=== PATIENT | male | born 1965 ===

== ENCOUNTER 2020-07-17 12:49 | Outpatient (REF) | payer BC, SELFPAY | END 2020-07-17 12:50 | disposition home or self-care (01) | LOC: HO.LAB 12:49 | PROVIDERS: Visit Provider Internal Medicine | DX: Z13.89 Encounter for screening for other disorder (principal) ==

== ENCOUNTER 2020-11-22 15:30 | Outpatient (RCR) | payer BC, SELFPAY ==
--- NOTE | 2020-11-22 16:14 | MHC.OT.DC ---
[address] [phone] F: [phone] Occupational Therapy Discharge Note Provider: Ramila Garrido NP. PCP Dr. Best White Diagnosis: Right lateral epicondylitis Date of Surgery: Date of Evaluation: 10/30/20 Date of Discharge: 11/22/20 Treatments to Date: 6 Cancellations to Date: No Shows to Date: Discharge Status: Achieved Goals Improved Function Independent with HEP Discharge Summary: Goals met for pain, strength ,function and self management for right lateral epicondylitis. Ship Purser 100 lb Quick DASH 15 pt, discomfort with lifting > 10 lb without use of a counter force brace Electronically Signed By: Analilia Joy OT CHT CLT Reviewed/agree with student documentation: N/A Therapist: Please Sign and return to therapist, thank you for your referral.
== END 2020-11-22 16:14 | disposition other institution (70) ==
LOC: HO.OT 15:30
PROVIDERS: PCP Internal Medicine; Visit Provider Nurse Practitioner Family
DX: M77.11 Lateral epicondylitis, right elbow (principal)
CPT/HCPCS: 97035; 97110; 97165

== ENCOUNTER 2021-03-06 10:39 | Outpatient (REF) | payer BC, SELFPAY ==
[2021-03-06 11:46] LABS: Hematocrit 38.1 % (42-52); Hemoglobin 12.1 g/dl (14.0-18.0); Mean Corpuscular HGB Conc 31.8 g/dl (31.0-36.0); Mean Corpuscular Hemoglobin 26.7 pg (27.0-33.0); Mean Corpuscular Volume 83.9 fL (80-98); Mean Platelet Volume 11.2 fL (9.4-12.4); Platelet Count 294 X10*3/uL (160-400); Red Blood Count 4.54 X10*6/uL (4.60-5.80); Red Cell Distribution Width 13.9 % (11.0-16.0); White Blood Count 7.8 X10*3/uL (4.8-10.8)
[2021-03-06 12:24] LABS: Alanine Aminotransferase 27 U/L (0-40); Albumin Level 4.3 g/dL (3.5-5.0); Alkaline Phosphatase 73 U/L (39-117); Anion Gap 12 (12-20); Aspartate Amino Transferase 27 U/L (5-37); Bilirubin Direct 0.2 mg/dL (0.0-0.5); Bilirubin Total 0.6 mg/dL (0.0-1.0); Blood Urea Nitrogen 12 mg/dL (9-16); Calcium 8.9 mg/dL (8.4-10.2); Carbon Dioxide 23 mmol/L (22-29); Chloride 110 mmol/L (96-108); Cholesterol 145 mg/dL; Estimated Glomerular Filt Rate > 60; Glucose Random 97 mg/dL (60-115); HDL Cholesterol 24 mg/dL; LDL Cholesterol Calculated 103 mg/dl; Potassium 4.7 mmol/L (3.3-5.1); Sodium 140 mmol/L (135-145); Total Protein 6.8 g/dL (6.5-8.0); Triglycerides 94 mg/dL
[2021-03-06 12:33] LABS: Thyroid Stimulating Hormone 1.25 uIU/mL (0.32-4.0)
== END 2021-03-06 10:40 | disposition home or self-care (01) ==
LOC: HO.LAB 10:39
PROVIDERS: PCP Internal Medicine; Visit Provider Internal Medicine
DX: Z00.01 Encounter for general adult medical examination with abnormal findings (principal); F41.9 Anxiety disorder, unspecified
CPT/HCPCS: 36415; 80048; 80061; 80076; 84443; 85027

== ENCOUNTER 2022-11-29 12:58 | Inpatient (IN) | payer BC, SELFPAY ==
--- NOTE | ~2022-11-29 | US_ITS ---
EXAMINATION: US RETROPERITONEAL LIMITED (RENAL ONLY) CLINICAL INFORMATION: Renal failure. Rule out obstruction.. COMPARISON: None available. TECHNIQUE: Grayscale and color imaging of the kidneys FINDINGS: RIGHT KIDNEY: 10.3 x 5.3 x 6.2 cm (SAG x AP x TRV). The kidney is normal in size, contour, and echogenicity. Renal cortical thickness is normal. No calculi or focal parenchymal lesions. No hydronephrosis. LEFT KIDNEY: 13.7 x 5.5 x 5.4 cm (SAG x AP x TRV). The left kidney is larger than the right. The kidney is normal in contour, and echogenicity. Renal cortical thickness is normal. No calculi or focal parenchymal lesions. No hydronephrosis. US/US renal BI IMPRESSION: No hydronephrosis. The left kidney is larger than the right.
[2022-11-29 13:32] VITALS: BP 141/73; PULSE 87; RESP 16; TEMP 35.9; O2SAT 100; BMI 30.5
--- NOTE | 2022-11-29 13:55 | ECG_ITS ---
Test Reason : CP Blood Pressure : / mmHG Vent. Rate : 081 BPM Atrial Rate : 081 BPM P-R Int : 142 ms QRS Dur : 090 ms QT Int : 372 ms P-R-T Axes : 026 -09 003 degrees QTc Int : 432 ms Normal sinus rhythm cannot exclude old Inferior infarct , age undetermined Abnormal ECG No previous ECGs available Referred By: Jerzy Alonzo Electronically Signed By:MARITZA HOYT
[2022-11-29] MEDS: 0.9 % Sodium Chloride 1,000 ML 999 ML IV (14:20)
[2022-11-29 14:32] LABS: MANUAL DIFF FLAG NO
--- NOTE | 2022-11-29 14:34 | ED_ITS ---
HPI - General Adult General Chief complaint: Weakness Stated complaint: weak Time Seen by Provider: 11/29/22 13:07 Source: patient Mode of arrival: ambulatory Limitations: no limitations History of Present Illness HPI narrative: 57-year-old male presents with generalized weakness. Patient started developing some GI related symptoms approximately 4-5 days ago nausea, no vomiting, diarrhea and some generalized myalgias. Denies any fevers but he did have chills. Patient's symptoms are moderate to severe. There is no clear relieving or exacerbating features. Sen nonbloody stools. Denies lightheadedness, chest pain, palpitations, cough, mucus production. Patient thought he might have the flu. He does have a sick contact in a son who had a respiratory related illness. Related Data Previous Rx's Medication Instructions Recorded clonazepam 0.5 mg tablet 0.25 mg PO BEDTIME PRN anxiety #30 06/09/22 tabs lisinopril 20 1 tab PO DAILY #90 tabs 10/27/22 mg-hydrochlorothiazide 12.5 mg tablet albuterol sulfate 90 mcg/actuation 2 puff PO Q6H #18 ea 11/18/22 aerosol inhaler Allergies Allergy/AdvReac Type Severity Reaction Status Date / Time ibuprofen Allergy Unknown Unknown Verified 11/29/22 13:37 [facility] Past Medical History Medical History Anxiety Essential (primary) hypertension Reactive airway disease Surgical History No pertinent past surgical history Family History Family History Father CVD (cardiovascular disease) Carotid artery disease Mother CVD (cardiovascular disease) Carotid artery disease Brother In good health Son In good health Social History Social History Housing: House Alcohol intake: current Alcohol intake frequency: a few times a month Patient Tobacco Use Status: Former Tobacco user (one year) Quit Date: one year e-Cigarette/Vaping Use: Never Used Second Hand Smoke Exposure: Yes Advance Directives: No Advance Directives Information Provided: No service: No Current occupational status: employed Cognitive needs: No Hearing needs: No Vision needs: Yes (glasses) Physical Exam ED Vital Signs: Vital Signs - 24 hr 05/26/23 13:32 Temperature 96.7 F L Pulse Rate 87 Respiratory Rate 16 Blood Pressure 141/73 H Pulse Oximetry 100 Oxygen Delivery Method Room Air BMI result Body Mass Index 30.5 GEN: Well developed, no acute distress, alert, oriented HEENT: Normocephalic, atraumatic, normal external ears, nose appears normal, no oropharyngeal edema or exudates Eyes: Normal to appearance Neck: Supple, no lymphadenopathy Respiratory: Talks in complete sentences, no respiratory distress, clear to auscultation bilaterally Cardiovascular: Regular rate and rhythm, no murmurs rubs or gallops Abdomen: Soft, nontender, nondistended, no guarding, no rebound Back: No CVA tenderness Extremities: No clubbing cyanosis or edema Neurologic: No focal neurologic deficits, cranial nerves 2-12 intact, strength is 5/5 bilaterally Skin: No rash Course Course Course Narrative: 57-year-old male presents with generalized weakness, chills, nausea, no vomiting, loose stools times several days. Examination is benign pays abdomen is soft, nontender, nondistended. There is no rebound or guarding. There is no CVA tenderness. While patient is here, I will hydrate the patient with intravenous fluids, check laboratory analysis, re-evaluate and appropriate disposition. Reevaluation(s) Reevaluation #1: patient wit significant ANGELY, will admit. No hyperkalemia, Tx for now with IVF and admit Time: 15:18 Medications Administered Discontinued Medications Generic Name Dose Route Start Last Admin Trade Name Freq PRN Reason Stop Dose Admin Sodium Chloride 1,000 mls @ 999 mls/hr 11/29/22 14:00 11/29/22 14:20 Ns IV 11/29/22 15:00 999 mls/hr .Q1H1M [facility] Administration Medical Decision Making Medical Decision Making [facility] Narrative: 57-year-old male presents with generalized weakness, diarrhea at chills. Examination is benign. Differential diagnosis includes COVID, influenza, viral gastroenteritis, IBD, IBS, anemia, electrolyte abnormality. There is no emergent indication for imaging of the abdomen or chest at this time. Will check for anemia, electrolyte abnormality, renal dysfunction, white blood cell count to consider an appropriate disposition. Differential Diagnosis Differential Diagnoses: The differential diagnosis associated with the presentation includes (See above) Admission/Observation Consideration of admission/observation: Escalation of care including admission/observation considered Lab Data MDM Lab Attestation statement: I reviewed the patient's lab results. 11/29/22 14:19 11/29/22 14:19 Labs: Lab Results 11/29/22 11/29/22 11/29/22 Range/Units 14:19 14:19 14:19 WBC 7.2 (4.8-10.8) X10*3/uL RBC 5.21 (4.60-5.80) X10*6/uL Hgb 12.8 L (14.0-18.0) g/dl Hct 38.6 L (42.0-52.0) % MCV 74.1 L (80.0-98.0) fL MCH 24.6 L (27.0-33.0) pg MCHC 33.2 (31.0-36.0) g/dl RDW 14.6 (11.0-16.0) % Plt Count 360 (160-400) X10*3/uL MPV 10.8 (9.4-12.4) fL Immature Gran % (Auto) 0.7 H (0.0-0.4) % Neut % (Auto) 71.4 (45-73) % Lymph % (Auto) 14.7 L (20-40) % [place] % (Auto) 11.1 H (2-11) % Eos % (Auto) 1.8 (0-4) % Baso % (Auto) 0.3 (0-2) % Lymph # (Auto) 1.1 L (1.2-4.9) X10*3/uL [place] # (Auto) 0.8 (0.1-1.2) X10*3/uL Eos # (Auto) 0.1 (0.0-0.4) X10*3/uL Baso # (Auto) 0.0 (0.0-0.2) X10*3/uL Abs Immat Gran (auto) 0.05 H (0.00-0.03) X10*3/uL Absolute Neuts (auto) 5.2 (2.0-8.3) x10*3/uL Absolute Nucleated RBC 0.000 (0.0-0.012) X10*3/uL Nucleated RBC % (auto) 0.0 (0.0-0.2) /100WBC Sodium 134 L (135-145) mmol/L Potassium 3.4 D (3.3-5.1) mmol/L Chloride 103 (96-108) mmol/L Carbon Dioxide 17 L (22-29) mmol/L Anion Gap 17 (12-20) BUN 97 H (9-16) mg/dL Creatinine 4.30 H* (0.5-1.4) mg/dL Estim Creat Clear Calc 19.9 Estimated GFR 14 Random Glucose 96 (60-115) mg/dL Lactic Acid 0.9 (0.5-2.0) mmol/L Calcium 8.5 (8.4-10.2) mg/dL Total Bilirubin 0.5 (0.0-1.0) mg/dL AST 19 (5-37) U/L ALT 22 (0-40) U/L Alkaline Phosphatase 77 (39-117) U/L Total Protein 7.2 (6.5-8.0) g/dL Albumin 4.4 (3.5-5.0) g/dL TSH 0.68 (0.32-4.0) uIU/mL COVID-19 (CHRISTINA) (Negative) COVID-19 Clin Com Influenza Type A (VALDEZ) (Negative) Influenza Type B (VALDEZ) (Negative) Influenza A & B Note 11/29/22 11/29/22 Range/Units 14:23 14:23 WBC (4.8-10.8) X10*3/uL RBC (4.60-5.80) X10*6/uL Hgb (14.0-18.0) g/dl Hct (42.0-52.0) % MCV (80.0-98.0) fL MCH (27.0-33.0) pg MCHC (31.0-36.0) g/dl RDW (11.0-16.0) % Plt Count (160-400) X10*3/uL MPV (9.4-12.4) fL Immature Gran % (Auto) (0.0-0.4) % Neut % (Auto) (45-73) % Lymph % (Auto) (20-40) % [place] % (Auto) (2-11) % Eos % (Auto) (0-4) % Baso % (Auto) (0-2) % Lymph # (Auto) (1.2-4.9) X10*3/uL [place] # (Auto) (0.1-1.2) X10*3/uL Eos # (Auto) (0.0-0.4) X10*3/uL Baso # (Auto) (0.0-0.2) X10*3/uL Abs Immat Gran (auto) (0.00-0.03) X10*3/uL Absolute Neuts (auto) (2.0-8.3) x10*3/uL Absolute Nucleated RBC (0.0-0.012) X10*3/uL Nucleated RBC % (auto) (0.0-0.2) /100WBC Sodium (135-145) mmol/L Potassium (3.3-5.1) mmol/L Chloride (96-108) mmol/L Carbon Dioxide (22-29) mmol/L Anion Gap (12-20) BUN (9-16) mg/dL Creatinine (0.5-1.4) mg/dL Estim Creat Clear Calc Estimated GFR Random Glucose (60-115) mg/dL Lactic Acid (0.5-2.0) mmol/L Calcium (8.4-10.2) mg/dL Total Bilirubin (0.0-1.0) mg/dL AST (5-37) U/L ALT (0-40) U/L Alkaline Phosphatase (39-117) U/L Total Protein (6.5-8.0) g/dL Albumin (3.5-5.0) g/dL TSH (0.32-4.0) uIU/mL COVID-19 (CHRISTINA) Negative (Negative) COVID-19 Clin Com See Note Influenza Type A (VALDEZ) Negative (Negative) Influenza Type B (VALDEZ) Negative (Negative) Influenza A & B Note See Note Independent Interpretation I performed an independent interpretation of an: EKG (Normal sinus rhythm heart rate 81, normal intervals, no acute ST elevations depressions, Q-waves noted in the inferior leads suggestive of an old inferior wall DE) Independent Historian Clinical information obtained from an independent historian. History obtained from or confirmed by: Spouse Prescription Management I considered prescription management with: Pain Medication Chronic Conditions Patient?s care impacted by: Hypertension Discharge Plan Discharge Clinical Impression: Diarrhea, Generalized weakness, ANGELY (acute kidney injury) Patient Disposition: Admitted As Inpatient
[2022-11-29 14:39] LABS: Basophils Percent Auto 0.3 % (0-2); Eosinophils Absolute Auto 0.1 X10*3/uL (0.0-0.4); Eosinophils Percent Auto 1.8 % (0-4); Hematocrit 38.6 % (42.0-52.0); Hemoglobin 12.8 g/dl (14.0-18.0); Imm Gran Abs Auto 0.05 X10*3/uL (0.00-0.03); Imm Gran Pct Auto 0.7 % (0.0-0.4); Lymphocytes Absolute Auto 1.1 X10*3/uL (1.2-4.9); Lymphocytes Percent Auto 14.7 % (20-40); Mean Corpuscular HGB Conc 33.2 g/dl (31.0-36.0); Mean Corpuscular Hemoglobin 24.6 pg (27.0-33.0); Mean Corpuscular Volume 74.1 fL (80.0-98.0); Mean Platelet Volume 10.8 fL (9.4-12.4); Monocytes Absolute Auto 0.8 X10*3/uL (0.1-1.2); Monocytes Percent Auto 11.1 % (2-11); Neutrophils Absolute Auto 5.2 x10*3/uL (2.0-8.3); Neutrophils Percent Auto 71.4 % (45-73); Platelet Count 360 X10*3/uL (160-400); Red Blood Count 5.21 X10*6/uL (4.60-5.80); Red Cell Distribution Width 14.6 % (11.0-16.0); White Blood Count 7.2 X10*3/uL (4.8-10.8)
[2022-11-29 14:48] LABS: Lactic Acid 0.9 mmol/L (0.5-2.0)
[2022-11-29 15:01] LABS: COVID-19 Test Negative (Negative); IDNOW Serial# 08D9AD1C; IDNOW Serial# BCCEAD1C; Influenza A Negative (Negative); Influenza B2 Negative (Negative)
[2022-11-29 15:02] LABS: Alanine Aminotransferase 22 U/L (0-40); Albumin Level 4.4 g/dL (3.5-5.0); Alkaline Phosphatase 77 U/L (39-117); Anion Gap 17 (12-20); Aspartate Amino Transferase 19 U/L (5-37); Bilirubin Total 0.5 mg/dL (0.0-1.0); Blood Urea Nitrogen 97 mg/dL (9-16); Calcium 8.5 mg/dL (8.4-10.2); Carbon Dioxide 17 mmol/L (22-29); Chloride 103 mmol/L (96-108); Creatinine Clr Calc Pharmacy 19.9; Estimated Glomerular Filt Rate 14; Glucose Random 96 mg/dL (60-115); Potassium 3.4 mmol/L (3.3-5.1); Sodium 134 mmol/L (135-145); Total Protein 7.2 g/dL (6.5-8.0)
[2022-11-29 15:13] LABS: TSH reflex Free T4 0.68 uIU/mL (0.32-4.0)
--- NOTE | 2022-11-29 15:54 | PM.IMHP ---
History of Present Illness Date of Service: 11/29/22 Attending physician on admission: [facility] Chief Complaint: weakness, diarrhea this is a 57-year-old male with history of hypertension who presents to the emergency department with generalized weakness and diarrhea. He began having multiple episodes of nonbloody diarrhea on Friday. This was not associated with any abdominal pain, fever, chills. His and son had similar illness prior to the onset of his symptoms. He denies any associated nausea or vomiting. He has had associated generalized weakness and intermittent dizziness. He has had decreased p.o. intake since onset of symptoms. He and his family did eat out at a restaurant on Friday prior to the onset of his symptoms. He denies any recent travel. He takes lisinopril for his hypertension and has been compliant with medications. He was seen in the outpatient clinic and due to generalized weakness he was referred to the emergency department for further evaluation. In the emergency department he was noted to have acute kidney injury with a serum creatinine of 4.30. No imaging was obtained. He received 1 L of normal saline and admission was requested. At this time patient states that he took Imodium and Pepto-Bismol yesterday and has not had any diarrhea since that time. Review of Systems Review of Systems: Yes all other systems are reviewed and are negative Constitutional: Constitutional: Denies chills and Denies fever(s) ENT: Reports dizziness Cardiovascular: Cardiovascular: Denies chest pain and Denies palpitations Gastrointestinal: Gastrointestinal: Denies abdominal pain, Reports diarrhea, Denies nausea and Denies vomiting Neurologic: Reports dizziness Endocrine: Endocrine: Denies palpitations [facility] Medical History Anxiety Essential (primary) hypertension Reactive airway disease Functional capacity: independent ambulation Family History Father CVD (cardiovascular disease) Carotid artery disease Mother CVD (cardiovascular disease) Carotid artery disease Brother In good health Son In good health Surgical History No pertinent past surgical history Social History Housing: House Alcohol intake: current Alcohol intake frequency: a few times a month Patient Tobacco Use Status: Former Tobacco user (one year) Quit Date: one year e-Cigarette/Vaping Use: Never Used Second Hand Smoke Exposure: Yes Advance Directives: No Advance Directives Information Provided: No service: No Current occupational status: employed Cognitive needs: No Hearing needs: No Vision needs: Yes (glasses) Meds Allergies Allergy/AdvReac Type Severity Reaction Status Date / Time ibuprofen Allergy Unknown Unknown Verified 11/29/22 13:37 Active Medications: Current Medications Acetaminophen (Acetaminophen 325 Mg Tablet) 650 mg PO Q6H PRN PRN Reason: Pain, Mild (Pain Scale 1-3) Sodium Chloride (Ns) 1,000 mls @ 100 mls/hr IVCONT .Q10H LAURENT Ondansetron HCl (Ondansetron Hcl 4 Mg/2 Ml Vial) 4 mg IVPUSH Q8H PRN PRN Reason: Nausea and Vomiting Pharmacy Consult (Consult Rx Perform Med Rec) 1 each MISCELLANE ONCE PRN PRN Reason: Consult order Sodium Chloride (0.9 % Sodium Chloride Flush 3 Ml Syringe) 3 ml IVFLUSH QSHIFT LAURENT Physical Exam Vital Signs and Narrative: Vital Signs: Last Vital Signs Temp 96.7 F L 11/29/22 13:32 Pulse 87 11/29/22 13:32 Resp 16 11/29/22 13:32 BP 141/73 H 11/29/22 13:32 Pulse Ox 100 11/29/22 13:32 O2 Del Method Room Air 11/29/22 13:32 BMI result Body Mass Index 30.5 Const: General: cooperative, comfortable, no acute distress, alert and awake Nutritional Appearance: average body habitus Orientation/consciousness: patient oriented x3 Resp: Effort & Inspection: normal respiratory effort, able to speak in complete sentences, no respiratory distress and no use of accessory muscles Cardio: Rate: regular rate Heart sounds: S1 normal heart sound present and S2 normal heart sound present GI: Other: +BS no guarding or rebound Inspection: No distended Palpation (GI): Soft to palpation and nontender Neuro: General: patient oriented x3 and CN's II-XI intact bilaterally Extrem: General: Yes no pedal edema Results Labs 11/29/22 14:19 11/29/22 14:19 Labs: Laboratory Results - last 24 hr 11/29/22 11/29/22 11/29/22 14:19 14:19 14:19 MCV 74.1 L MCH 24.6 L MCHC 33.2 RDW 14.6 Plt Count 360 MPV 10.8 Immature Gran % (Auto) 0.7 H Neut % (Auto) 71.4 Lymph % (Auto) 14.7 L [place] % (Auto) 11.1 H Eos % (Auto) 1.8 Baso % (Auto) 0.3 Lymph # (Auto) 1.1 L [place] # (Auto) 0.8 Eos # (Auto) 0.1 Baso # (Auto) 0.0 Abs Immat Gran (auto) 0.05 H Absolute Neuts (auto) 5.2 Absolute Nucleated RBC 0.000 Nucleated RBC % (auto) 0.0 Anion Gap 17 Estim Creat Clear Calc 19.9 Estimated GFR 14 Random Glucose 96 Lactic Acid 0.9 Calcium 8.5 Total Bilirubin 0.5 AST 19 ALT 22 Alkaline Phosphatase 77 Total Protein 7.2 Albumin 4.4 TSH 0.68 COVID-19 (CHRISTINA) COVID-19 Clin Com Influenza Type A (VALDEZ) Influenza Type B (VALDEZ) Influenza A & B Note 11/29/22 11/29/22 14:23 14:23 MCV MCH MCHC RDW Plt Count MPV Immature Gran % (Auto) Neut % (Auto) Lymph % (Auto) [place] % (Auto) Eos % (Auto) Baso % (Auto) Lymph # (Auto) [place] # (Auto) Eos # (Auto) Baso # (Auto) Abs Immat Gran (auto) Absolute Neuts (auto) Absolute Nucleated RBC Nucleated RBC % (auto) Anion Gap Estim Creat Clear Calc Estimated GFR Random Glucose Lactic Acid Calcium Total Bilirubin AST ALT Alkaline Phosphatase Total Protein Albumin TSH COVID-19 (CHRISTINA) Negative COVID-19 Clin Com See Note Influenza Type A (VALDEZ) Negative Influenza Type B (VALDEZ) Negative Influenza A & B Note See Note Assessment and Plan (1) Diarrhea: Status: Acute (2) ANGELY (acute kidney injury): Status: Acute Plan This is a 57 year old male with history of hypertension who presents to the emergency department with 5 day history of diarrhea and generalized weakness found to have acute kidney injury Acute kidney injury Likely related to intravascular volume depletion secondary to diarrhea and decreased PO intake exacerbated by use of lisinopril Renal US to rule out obstruction although less likely urine studies and UA pending IVF if no improvement in renal function would consider Nephrology evaluation avoid nephrotoxins. Hold lisinopril follow BMP acute metabolic acidosis Secondary to ANGELY Monitor renal function/BMP closely diarrhea Likely result of viral gastroenteritis diarrhea seems to have resolved at this time. Will order GI panel in the event that patient has recurrent diarrhea HTN hold lisinopril for ANGELY Follow blood pressure closely chronic normocytic anemia H/H at baseline - above transfusion threshold dvt ppx - mechanical devices, early ambulation attending - dr. albert given acute kidney injury patient will likely require 2 midnight stay in the hospital for IV fluids and close monitoring of renal function Time Spent With Patient Time: Total time managing care of this patient today ____ minutes. Quality Stroke Does the patient have a stroke diagnosis?: No VTE Prior VTE?: No VTE Risk Level:: Medical - moderate - high VTE Device Contraindication: N/A - Device Ordered VTE Drug Contraindication: Treatment Not Indicated
--- NOTE | 2022-11-29 16:00 | PC.NURSE ---
Patient here for evaluation of generalized weakness and diarrhea all weak. IV obtained and patient was given IVF per MAR. Patient is alert and oriented, able to ambulate without issue. Patient ambulated to bathroom independently accompanied by . No issue noted with gait.
--- NOTE | 2022-11-29 16:52 | PHA.MEDREC ---
Pharmacy Consult ? Medication Reconciliation Pharmacy has completed the medication reconciliation. Pt knew meds. Compiled med rec from pt conversation.
[2022-11-29] MEDS: 0.9 % Sodium Chloride 1,000 ML 100 ML IVCONT (17:06)
[2022-11-29 19:02] LABS: Appearance Urine Cloudy; Color Urine Yellow; Glucose Urine UA Negative (Negative); Leukocyte Esterase Urine Negative (Negative); Nitrite Urine Negative (Negative); PH 5.5 (5.0-9.0); UMIC TRIGGER UACC YES; Urine Blood Negative (Negative); Urine Ketones Negative (Negative); Urine Protein 30 (1+) mg/dL (Neg-Trace)
[2022-11-29 19:04] VITALS: BP 133/78; PULSE 72; RESP 18; TEMP 36.6; O2SAT 100
[2022-11-29 19:07] LABS: Bacteria Urine None Seen (None Seen); RBC Urine 0-2 /HPF (0-2); Squamous Epithelial Cell Urine 0-2 /HPF (0-2); WBC Urine 0-5 /HPF (0-5)
[2022-11-29 19:33] VITALS: BMI 29.2
[2022-11-29 19:44] VITALS: BP 134/77; PULSE 100; RESP 18; TEMP 36.6; O2SAT 99
[2022-11-29 20:36] LABS: Creatinine Urine 77.69 mg/dL
[2022-11-30] MEDS: Acetaminophen 325 MG TABLET 650 MG PO (01:30)
[2022-11-30 03:27] VITALS: BP 132/77; PULSE 80; RESP 18; TEMP 36.5; O2SAT 99
[2022-11-30] MEDS: 0.9 % Sodium Chloride 1,000 ML 100 ML IVCONT (03:59)
[2022-11-30 06:44] LABS: Anion Gap 14 (12-20); Blood Urea Nitrogen 72 mg/dL (9-16); Carbon Dioxide 17 mmol/L (22-29); Chloride 111 mmol/L (96-108); Creatinine Clr Calc Pharmacy 42.8; Estimated Glomerular Filt Rate 36; Glucose Random 139 mg/dL (60-115); Potassium 3.6 mmol/L (3.3-5.1); Sodium 138 mmol/L (135-145)
--- NOTE | 2022-11-30 07:47 | PM.DS ---
DS: Providers Provider Date of Service: 11/30/22 Date of admission: 11/29/22 15:43 Primary care physician: Best White MD DS: Diagnosis Discharge Diagnosis (1) Diarrhea: Status: Acute (2) ANGELY (acute kidney injury): Status: Acute DS: Summary Hospital Course Hospital Course: HP as per admitting provider this is a 57-year-old male with history of hypertension who presents to the emergency department with generalized weakness and diarrhea. ? He began having multiple episodes of nonbloody diarrhea on Friday.? This was not associated with any abdominal pain, fever, chills.? His and son had similar illness prior to the onset of his symptoms.? He denies any associated nausea or vomiting. He has had associated generalized weakness and intermittent dizziness.? He has had decreased p.o. intake since onset of symptoms. He and his family did eat out at a restaurant on Friday prior to the onset of his symptoms. He denies any recent travel.? He takes lisinopril for his hypertension and has been compliant with medications.? He was seen in the outpatient clinic and due to generalized weakness he was referred to the emergency department for further evaluation.? In the emergency department he was noted to have acute kidney injury with a serum creatinine of 4.30.? No imaging was obtained.? He received 1 L of normal saline and admission was requested.? At this time patient states that he took Imodium and Pepto-Bismol yesterday and has not had any diarrhea since that time . Acute kidney injury related to intravascular volume depletion secondary to diarrhea and decreased PO intake exacerbated by use of lisinopril Renal US neg for obstruction urine studies negative resolved IVF check BMP friday and resume lisinopril acute metabolic acidosis. Resolved Secondary to ANGELY diarrhea. resolved Likely result of viral gastroenteritis HTN hold lisinopril for ANGELY until Friday chronic normocytic anemia H/H at baseline - above transfusion threshold Time Spent with Patient Time attestation: Total time managing care of this patient today ____ minutes. Discharge coordination time: Greater than 30 minutes Quality: Safe Use of Opioids Does Pt have an Active Cancer Diagnosis on the Problem List?: No Quality: Stroke Does the patient have a stroke diagnosis?: No Physical Exam Vital Signs: Vital Signs: Last Vital Signs Temp 97.7 F 11/30/22 03:27 Pulse 80 11/30/22 03:27 Resp 18 11/30/22 03:27 BP 132/77 11/30/22 03:27 Pulse Ox 99 11/30/22 03:27 O2 Del Method Room Air 11/30/22 03:27 BMI result Body Mass Index 29.2 Appearing in no acute distress head is normocephalic atraumatic eyes pupils are PERRLA sclera is anicteric mouth throat mucous membranes are intact and moist neck is supple no lymphadenopathy, no JVD noted lung sounds are clear to auscultation heart regular rate rhythm, clear S1, S2 positive bowel sounds, abdomen is soft, nontender neuro patient is alert x3, no focal deficits DS: Data Data Completed and Pending Labs on day of discharge: Laboratory Results - last 24 hr 11/29/22 11/29/22 11/29/22 14:19 14:19 14:19 WBC 7.2 RBC 5.21 Hgb 12.8 L Hct 38.6 L MCV 74.1 L MCH 24.6 L MCHC 33.2 RDW 14.6 Plt Count 360 MPV 10.8 Immature Gran % (Auto) 0.7 H Neut % (Auto) 71.4 Lymph % (Auto) 14.7 L Payne % (Auto) 11.1 H Eos % (Auto) 1.8 Baso % (Auto) 0.3 Lymph # (Auto) 1.1 L Payne # (Auto) 0.8 Eos # (Auto) 0.1 Baso # (Auto) 0.0 Abs Immat Gran (auto) 0.05 H Absolute Neuts (auto) 5.2 Absolute Nucleated RBC 0.000 Nucleated RBC % (auto) 0.0 Sodium 134 L Potassium 3.4 D Chloride 103 Carbon Dioxide 17 L Anion Gap 17 BUN 97 H Creatinine 4.30 H* Estim Creat Clear Calc 19.9 Estimated GFR 14 Random Glucose 96 Lactic Acid 0.9 Calcium 8.5 Total Bilirubin 0.5 AST 19 ALT 22 Alkaline Phosphatase 77 Total Protein 7.2 Albumin 4.4 TSH 0.68 Urine Color Urine Appearance Urine pH Ur Specific [place] Urine Protein Urine Glucose (UA) Urine Ketones Urine Blood Urine Nitrite Ur Leukocyte Esterase Urine RBC Urine WBC Ur Squamous Epith Cells Urine Bacteria Hyaline Casts Ur Random Sodium Urine Creatinine COVID-19 (CHRISTINA) COVID-19 Clin Com Influenza Type A (VALDEZ) Influenza Type B (VALDEZ) Influenza A & B Note 11/29/22 11/29/22 11/29/22 14:23 14:23 18:55 WBC RBC Hgb Hct MCV MCH MCHC RDW Plt Count MPV Immature Gran % (Auto) Neut % (Auto) Lymph % (Auto) Payne % (Auto) Eos % (Auto) Baso % (Auto) Lymph # (Auto) Payne # (Auto) Eos # (Auto) Baso # (Auto) Abs Immat Gran (auto) Absolute Neuts (auto) Absolute Nucleated RBC Nucleated RBC % (auto) Sodium Potassium Chloride Carbon Dioxide Anion Gap BUN Creatinine Estim Creat Clear Calc Estimated GFR Random Glucose Lactic Acid Calcium Total Bilirubin AST ALT Alkaline Phosphatase Total Protein Albumin TSH Urine Color Yellow Urine Appearance Cloudy Urine pH 5.5 Ur Specific [place] 1.010 Urine Protein 30 (1+) H Urine Glucose (UA) Negative Urine Ketones Negative Urine Blood Negative Urine Nitrite Negative Ur Leukocyte Esterase Negative Urine RBC 0-2 Urine WBC 0-5 Ur Squamous Epith Cells 0-2 Urine Bacteria None Seen Hyaline Casts 3-5 Ur Random Sodium Urine Creatinine COVID-19 (CHRISTINA) Negative COVID-19 Clin Com See Note Influenza Type A (VALDEZ) Negative Influenza Type B (VALDEZ) Negative Influenza A & B Note See Note 11/29/22 11/29/22 11/30/22 20:09 20:09 05:25 WBC RBC Hgb Hct MCV MCH MCHC RDW Plt Count MPV Immature Gran % (Auto) Neut % (Auto) Lymph % (Auto) Payne % (Auto) Eos % (Auto) Baso % (Auto) Lymph # (Auto) Payne # (Auto) Eos # (Auto) Baso # (Auto) Abs Immat Gran (auto) Absolute Neuts (auto) Absolute Nucleated RBC Nucleated RBC % (auto) Sodium 138 Potassium 3.6 Chloride 111 H Carbon Dioxide 17 L Anion Gap 14 BUN 72 H Creatinine 1.96 H Estim Creat Clear Calc 42.8 Estimated GFR 36 Random Glucose 139 H Lactic Acid Calcium 8.0 L Total Bilirubin AST ALT Alkaline Phosphatase Total Protein Albumin TSH Urine Color Urine Appearance Urine pH Ur Specific [place] Urine Protein Urine Glucose (UA) Urine Ketones Urine Blood Urine Nitrite Ur Leukocyte Esterase Urine RBC Urine WBC Ur Squamous Epith Cells Urine Bacteria Hyaline Casts Ur Random Sodium 32.0 Urine Creatinine 77.69 COVID-19 (CHRISTINA) COVID-19 Clin Com Influenza Type A (VALDEZ) Influenza Type B (VALDEZ) Influenza A & B Note Discharge Plan Discharge Anticipated Discharge Date/Time: 11/30/22 07:46 Patient Disposition: Home, Self-Care Discharge Diagnosis: ANGELY Diarrhea Gastroenteritis Referrals: Best White MD [Primary Care Provider] - 1 Week Discharge Medications: Continued albuterol sulfate 90 mcg/actuation HFA aerosol inhaler 2 puff PO Q6H Qty: 18 1RF clonazepam 0.5 mg tablet 0.25 mg PO BEDTIME PRN (Reason: anxiety) Qty: 30 0RF Rx Instructions: administer 30 minutes before bedtime Held lisinopril-hydrochlorothiazide 20-12.5 mg tablet 1 tab PO BEDTIME Hold Instructions: Resume on 12/02/22. Discharge Orders: Discharge Order (Routine); Ordered 11/30/22 Ordered By: Dominique Urias Diet: Advance to usual diet Activity on Discharge: As tolerated Stand Alone Forms: Patient Portal Discharge page Other Ambulatory Orders: Basic Metabolic Panel (Routine) Timeframe: 20221202 Facility: [facility] - Location: Laboratory Ordered By: Dominique Urias Care Plan Goals: Complete resolution of symptoms Health Concerns: ANGELY Diarrhea Gastroenteritis Plan of Treatment: Check BMP on Friday then resume lisinopril Follow up with PCP at scheduled appointment Assessment: See discharge summary
--- NOTE | 2022-11-30 08:04 | MHC.CM.PN ---
PT WILL DC HOME TODAY WITH NO SERVICES
== END 2022-11-30 10:08 | disposition home or self-care (01) | DRG 249 ==
LOC: HO.ED 15:17 → HO.EDOVER 15:54 → HO.S3 17:26
PROVIDERS: Admitting Provider Physician Assistant Medical; Emergency Provider Emergency Medicine; PCP Internal Medicine; Visit Provider Nurse Practitioner Acute Care
DX: A08.4 Viral intestinal infection, unspecified (principal); N17.9 Acute kidney failure, unspecified; E87.21 Acute metabolic acidosis; F41.9 Anxiety disorder, unspecified; I10 Essential (primary) hypertension; D64.9 Anemia, unspecified; Z20.822 Contact with and (suspected) exposure to COVID-19; Z87.891 Personal history of nicotine dependence; Z88.6 Allergy status to analgesic agent; Z79.899 Other long term (current) drug therapy
CPT/HCPCS: 36415; 76775; 80048; 80053; 81001; 81003; 83605; 84300; 84443; 85025; 87502; 87635; 93005; 99285

== ENCOUNTER 2022-11-29 14:00 | Outpatient (REF) | payer BC, SELFPAY ==
[2022-11-29 14:47] LABS: Influenza A PCR NEGATIVE (Negative); Influenza B PCR NEGATIVE (Negative); Resp Syncy Virus RNA Qual PCR NEGATIVE (Negative); SARS COV2 PCR INHOUSE NEGATIVE (Negative)
== END 2022-11-29 14:01 | disposition home or self-care (01) ==
LOC: HO.LNP 14:00
PROVIDERS: Visit Provider Nurse Practitioner Family
DX: Z20.822 Contact with and (suspected) exposure to COVID-19 (principal); R09.89 Other specified symptoms and signs involving the circulatory and respiratory systems
CPT/HCPCS: 0241U

== ENCOUNTER 2022-12-03 15:16 | Outpatient (REF) | payer BC, SELFPAY ==
[2022-12-03 16:29] LABS: Anion Gap 11 (12-20); Blood Urea Nitrogen 19 mg/dL (9-16); Calcium 8.6 mg/dL (8.4-10.2); Carbon Dioxide 22 mmol/L (22-29); Chloride 108 mmol/L (96-108); Estimated Glomerular Filt Rate > 60; Glucose Random 104 mg/dL (60-115); Potassium 4.7 mmol/L (3.3-5.1); Sodium 136 mmol/L (135-145)
== END 2022-12-03 15:17 | disposition home or self-care (01) ==
LOC: HO.LAB 15:16
PROVIDERS: PCP Internal Medicine; Visit Provider Nurse Practitioner Acute Care
DX: N17.9 Acute kidney failure, unspecified (principal)
CPT/HCPCS: 36415; 80048

== ENCOUNTER 2022-12-09 09:28 | Outpatient (REF) | payer BC, SELFPAY ==
[2022-12-09 10:04] LABS: Hematocrit 33.8 % (42.0-52.0); Hemoglobin 10.6 g/dl (14.0-18.0); Mean Corpuscular HGB Conc 31.4 g/dl (31.0-36.0); Mean Corpuscular Hemoglobin 25.4 pg (27.0-33.0); Mean Corpuscular Volume 81.1 fL (80.0-98.0); Mean Platelet Volume 10.1 fL (9.4-12.4); Platelet Count 377 X10*3/uL (160-400); Red Blood Count 4.17 X10*6/uL (4.60-5.80); Red Cell Distribution Width 15.9 % (11.0-16.0); White Blood Count 11.9 X10*3/uL (4.8-10.8)
[2022-12-09 10:49] LABS: Alanine Aminotransferase 27 U/L (0-40); Albumin Level 3.9 g/dL (3.5-5.0); Alkaline Phosphatase 82 U/L (39-117); Anion Gap 11 (12-20); Aspartate Amino Transferase 22 U/L (5-37); Bilirubin Direct 0.1 mg/dL (0.0-0.5); Bilirubin Total 0.5 mg/dL (0.0-1.0); Blood Urea Nitrogen 17 mg/dL (9-16); Calcium 8.9 mg/dL (8.4-10.2); Carbon Dioxide 20 mmol/L (22-29); Chloride 113 mmol/L (96-108); Cholesterol 125 mg/dL; Estimated Glomerular Filt Rate > 60; Glucose Random 98 mg/dL (60-115); HDL Cholesterol 22 mg/dL; LDL Cholesterol Calculated 83 mg/dl; Potassium 4.7 mmol/L (3.3-5.1); Sodium 139 mmol/L (135-145); Total Protein 6.1 g/dL (6.5-8.0); Triglycerides 103 mg/dL
[2022-12-09 11:06] LABS: Thyroid Stimulating Hormone 1.85 uIU/mL (0.32-4.0)
== END 2022-12-09 09:29 | disposition home or self-care (01) ==
LOC: HO.LAB 09:28
PROVIDERS: PCP Internal Medicine; Visit Provider Internal Medicine
DX: I10 Essential (primary) hypertension (principal)
CPT/HCPCS: 36415; 80048; 80061; 80076; 84443; 85027

== ENCOUNTER 2022-12-10 16:33 | Outpatient (REF) | payer BC, SELFPAY ==
[2022-12-10 17:09] LABS: Hematocrit 34.9 % (42.0-52.0); Hemoglobin 10.7 g/dl (14.0-18.0); Mean Corpuscular HGB Conc 30.7 g/dl (31.0-36.0); Mean Corpuscular Hemoglobin 24.9 pg (27.0-33.0); Mean Corpuscular Volume 81.2 fL (80.0-98.0); Mean Platelet Volume 10.2 fL (9.4-12.4); Platelet Count 401 X10*3/uL (160-400); White Blood Count 9.4 X10*3/uL (4.8-10.8)
[2022-12-10 17:44] LABS: Iron 27 mcg/dL (45-160); Lipase 64 U/L (8-78); Percent Iron Saturation 8 % (15-50); Total Iron Binding Capacity 357 mcg/dL (228-428); Unsaturated Iron Binding 330 ug/dL
[2022-12-10 17:56] LABS: Erythrocyte Sedimentation Rate 14 MM/HR (0-15)
== END 2022-12-10 16:34 | disposition home or self-care (01) ==
LOC: HO.LAB 16:33
PROVIDERS: PCP Physician Assistant; Visit Provider Physician Assistant
DX: K52.9 Noninfective gastroenteritis and colitis, unspecified (principal); D50.9 Iron deficiency anemia, unspecified
CPT/HCPCS: 36415; 83540; 83690; 85027; 85652

== ENCOUNTER 2022-12-21 11:10 | Outpatient (REF) | payer BC, SELFPAY ==
[2022-12-21 12:32] LABS: Leukocytes Stool Qualitative MANY: >10/OIF (NEGATIVE)
[2022-12-21 12:39] LABS: CDiff Gene PCR NEGATIVE (Negative)
[2022-12-28 21:59] LABS: Calprotectin, Fecal 1330 mcg/g
== END 2022-12-21 11:11 | disposition home or self-care (01) ==
LOC: HO.LNP 11:10
PROVIDERS: Visit Provider Physician Assistant
DX: K52.9 Noninfective gastroenteritis and colitis, unspecified (principal)
CPT/HCPCS: 83993; 87493; 89055

== ENCOUNTER 2023-04-15 15:43 | Outpatient (AMB) | payer BC, SELFPAY ==
[2023-04-15 15:55] VITALS: BP 140/90; PULSE 82; RESP 17; O2SAT 98; BMI 28.5
--- NOTE | 2023-04-15 15:55 | MHC.PC.OV ---
Vital Signs 04/15/23 15:55 Height 5 ft 6 in Weight 176 lb 6 oz BMI 28.5 BP 140/90 H Blood Pressure Location Lt brachial Position Sitting Respiration 17 Pulse 82 Pulse Source Pulse Oximeter Pulse Oximetry (%) 98 Oxygen Delivery Method Room Air Intake Visit Reasons: 4W follow up, rescheduled from 02/26 Whipped Topping Finisher Required: No Accompanied by: Self / Same As Patient Allergies ibuprofen Allergy (Unknown, Verified 04/15/23 15:58) Unknown Medication List - Last Reconciled 04/15/23 by Dereje Chen PA-C albuterol sulfate 90 mcg/actuation 2 puffs PO Q6H clonazepam 0.25 mg (1/2 x 0.5 mg) PO BEDTIME PRN ferrous sulfate 325 mg PO BID 30 days lisinopril-hydrochlorothiazide 20-12.5 mg 1 tab PO BEDTIME Tobacco use date assessed: 12/10/22 HPI 4W follow up, rescheduled from 02/26 HPI Details Patient is a 57-year-old male here today for a follow-up visit. Patient has a past medical history significant for hypertension and anxiety. At last visit discussed his viral gastroenteritis that resulted in ANGELY. His blood pressure medication was held due to his ANGELY. He since recovered and restarted his blood pressure medication. Unfortunately 4 days ago has noted some lower back pain to which he had taken Advil and the started to have mid upper abdominal pain and bouts of diarrhea which he is concerned about. He has stopped using his blood pressure medication and fear of being dehydrated. He otherwise denies any blood or dark tarry stools. He is somewhat concerned about peptic ulcer disease. Of note blood pressure elevated today in office. 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 Of no patient labs in December of 2022 did show anemia and stool study showing evidence of inflammation. Laboratory Tests 11/29/22 11/29/22 11/30/22 14:19 14:19 05:25 WBC RBC Hgb 12.8 L Creatinine 4.30 H* 1.96 H Iron Stool Calprotectin 12/03/22 12/09/22 12/09/22 15:28 08:35 08:35 WBC 11.9 H RBC Hgb Creatinine 0.80 0.83 Iron Stool Calprotectin 12/09/22 12/09/22 12/10/22 08:35 08:35 16:44 WBC 9.4 RBC 4.17 L 4.30 L Hgb 10.6 L 10.7 L Creatinine Iron Stool Calprotectin 12/10/22 12/21/22 16:44 08:15 WBC RBC Hgb Creatinine Iron 27 L Stool Calprotectin 1330 H [facility] Medical History Anxiety Essential (primary) hypertension Reactive airway disease Surgical History No pertinent past surgical history Family History Father CVD (cardiovascular disease) Carotid artery disease Mother CVD (cardiovascular disease) Carotid artery disease Brother In good health Son In good health Social History Household Members: Spouse Household Members Other:: 2 Housing: House Do you presently have visiting nurse or other home services: No Alcohol intake: never Patient Tobacco Use Status: Former Tobacco user Quit Date: 2021 Tobacco use type: Cigarette Years Smoked: year ago e-Cigarette/Vaping Use: Never Used Second Hand Smoke Exposure: No service: No Current occupational status: employed Cognitive needs: No Hearing needs: No Vision needs: Yes (glasses) Questionnaire Thrive Questionnaire Date Thrive assessed: 12/10/22 CLARICE-7 AMB Questionnaire CLARICE-7 Date CLARICE - 7 assessed: 12/10/22 Source: Developed by Drs. Baltazar Suarez, Gi Huston, Russell Damico and colleagues, with an educational alex from [employer]. Review of Systems Const Denies headache(s) Eyes Denies loss of vision ENT Denies vertigo, Denies dizziness, Denies headache(s) and Denies sore throat Card Denies chest pain, Denies leg edema and Denies lightheadedness Resp Denies cough, Denies hemoptysis and Denies wheezing GI Denies abdominal pain, Denies melena, Reports bloating, Reports change in bowel habits, Denies constipation, Reports diarrhea, Reports nausea and Denies vomiting Denies dysuria, Denies urinary frequency and Denies urinary urgency Musc Denies arthralgias, Denies joint swelling, Denies numbness and Denies tingling Neuro Denies Abnormal speech present, Denies behavioral changes, Denies vertigo, Denies dizziness, Denies headache(s), Denies loss of vision, Denies memory loss, Denies numbness and Denies tingling Psych Denies anxiety, Denies behavioral changes, Denies depression, Denies memory loss and Denies panic attacks Randy/Lymph Denies easy bleeding and Denies easy bruising Aller/Immun Denies wheezing Physical exam (Primary Care) Vital Signs: Last Vital Signs Pulse 82 04/15/23 15:55 Resp 17 04/15/23 15:55 BP 140/90 H 04/15/23 15:55 Pulse Ox 98 04/15/23 15:55 Oxygen Delivery Method Room Air 04/15/23 15:55 BMI result Body Mass Index 28.5 Tobacco/Smoking Status: Tobacco use Status Tobacco use date assessed 12/10/22 04/15/23 15:58 Patient Tobacco Use Status Former Tobacco user 04/15/23 15:58 Tobacco use type Cigarette 04/15/23 15:58 e-Cigarette/Vaping Use Never Used 04/15/23 15:58 Thrive Assessment: Date of Thrive Assessment Date Thrive assessed 12/10/22 04/15/23 15:58 Const General: healthy appearing, no acute distress, alert and awake Nutritional Appearance: well nourished Orientation/consciousness: oriented to person, oriented to place and oriented to time HENMT Ears: TM's normal bilaterally General nose exam: Normal nasal mucous membranes and turbinates present Eyes Conjunctivae: conjunctivae normal Sclerae: sclerae normal Pupils: Equal, round and reactive pupils present Neck Neck: Yes no lymphadenopathy and Yes no JVD Thyroid: Thyroid normal Carotids: no bruits Resp Effort & Inspection: normal respiratory effort and not tachypneic Auscultation: no crackles, no rales, no rhonchi and no wheezes Cardio Rate: regular rate Rhythm: regular rhythm Heart sounds: no murmurs and normal S1 and S2 GI Palpation (GI): Soft to palpation, nontender, no hepatomegaly and no splenomegaly Auscultation: normal bowel sounds Skin General skin exam: no rashes or lesions noted and dry skin Neuro General: oriented to person, oriented to place and oriented to time Cranial nerves: Yes Equal, round and reactive pupils present Speech: No Abnormal speech present Gait exam (Neuro): Normal gait present Motor exam (neuro): no tremor noted Extrem Right upper extremity: full ROM Left upper extremity: full ROM Right lower extremity: full ROM; no edema Left lower extremity: full ROM; no edema Psych Mental Status: mental status grossly normal Speech and movement: Normal speech and movement present Affect: normal affect Attitude: cooperative Thought process: Normal thought process present Assessment and Plan Assessment & Plan (1) GERD (gastroesophageal reflux disease): Code(s): K21.9 - Gastro-esophageal reflux disease without esophagitis Qualifiers: Esophagitis presence: without esophagitis Qualified Code(s): K21.9 - Gastro-esophageal reflux disease without esophagitis Plan: Patient's signs symptoms of epigastric pain after taking Advil is concerning for peptic ulcer disease. 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 Advised to stay away from NSAIDs . Due to the acuity of patient's symptoms will send for nonfasting labs including stool study for H pylori. Otherwise will start PPI therapy for presumed diagnosis of gastritis. (2) Essential (primary) hypertension: Code(s): I10 - Essential (primary) hypertension Plan: At this time patient is holding his lisinopril hydrochlorothiazide as he has been having bouts of diarrhea lately and fears he will become dehydrated. Blood pressure slightly elevated today in office and advised to restart blood pressure medication when diarrhea has resolved. Goal blood pressures to be below 140/90 (3) Chronic diarrhea: Code(s): K52.9 - Noninfective gastroenteritis and colitis, unspecified Plan: Patient does report again having recent bout diarrhea with acute onset. He does have an elevated stool calprotectin which makes diagnosis inflammatory process more likely. He will follow-up with Gastroenterology for colonoscopy. Orders: Orders H pylori Ag Stool 04/15/23 K21.9 - Gastro-esophageal reflux disease without esophagitis Complete Blood Count no Diff 04/15/23 K21.9 - Gastro-esophageal reflux disease without esophagitis Lipase 04/15/23 K21.9 - Gastro-esophageal reflux disease without esophagitis Comprehensive Met. Panel 04/15/23 K21.9 - Gastro-esophageal reflux disease without esophagitis Medications: New lisinopril-hydrochlorothiazide 20-12.5 mg 1 tab PO DAILY 90 tabs 1RF 90 days I10 - Essential (primary) hypertension omeprazole 20 mg PO DAILY 15 days 15 caps 0RF K21.9 - Gastro-esophageal reflux disease without esophagitis Refilled albuterol sulfate 90 mcg/actuation 2 puffs PO Q6H 18 ea 1RF clonazepam administer 30 minutes before bedtime 0.25 mg (1/2 x 0.5 mg) PO BEDTIME PRN 30 tabs 0RF anxiety Coding Level of Care Code Est Pt Level 4 (75793) Diagnoses Gastroesophageal reflux disease without esophagitis K21.9 Esophagitis presence: without esophagitis Essential (primary) hypertension I10 Chronic diarrhea K52.9
== END 2023-04-15 16:26 | disposition home or self-care (01) ==
PROVIDERS: PCP Physician Assistant; Visit Provider Physician Assistant
DX: K21.9 Gastro-esophageal reflux disease without esophagitis (principal); I10 Essential (primary) hypertension; K52.9 Noninfective gastroenteritis and colitis, unspecified
CPT/HCPCS: 99214

== ENCOUNTER 2023-04-15 16:34 | Outpatient (REF) | payer BC, SELFPAY ==
[2023-04-15 17:53] LABS: Alanine Aminotransferase 19 U/L (0-40); Alkaline Phosphatase 75 U/L (39-117); Anion Gap 12 (12-20); Aspartate Amino Transferase 20 U/L (5-37); Bilirubin Total 0.3 mg/dL (0.0-1.0); Blood Urea Nitrogen 13 mg/dL (9-16); Carbon Dioxide 20 mmol/L (22-29); Chloride 111 mmol/L (96-108); Estimated Glomerular Filt Rate > 60; Glucose Random 91 mg/dL (60-115); Lipase 24 U/L (8-78); Potassium 3.8 mmol/L (3.3-5.1); Sodium 139 mmol/L (135-145); Total Protein 6.4 g/dL (6.5-8.0)
== END 2023-04-15 16:35 | disposition home or self-care (01) ==
LOC: HO.LAB 16:34
PROVIDERS: PCP Physician Assistant; Visit Provider Physician Assistant
DX: K21.9 Gastro-esophageal reflux disease without esophagitis (principal)
CPT/HCPCS: 36415; 80053; 83690; 85027

== ENCOUNTER 2023-04-18 11:45 | Outpatient (REF) | payer BC, SELFPAY | END 2023-04-18 11:46 | disposition home or self-care (01) | LOC: HO.LNP 11:45 | PROVIDERS: Visit Provider Physician Assistant | DX: K21.9 Gastro-esophageal reflux disease without esophagitis (principal) | CPT/HCPCS: 87338 ==

== ENCOUNTER 2023-06-10 09:49 | Outpatient (AMB) | payer BC, SELFPAY ==
[2023-06-10 10:49] VITALS: BP 172/96; PULSE 86; TEMP 36.7; O2SAT 97; BMI 29.0
--- NOTE | 2023-06-10 10:49 | AM.OFFWIN_ITS ---
Intake Vital Signs 06/10/23 10:49 Height 5 ft 6 in Weight 81.647 kg BMI 29.0 BP 172/96 H Blood Pressure Location Rt brachial Position Sitting Pulse 86 Pulse Source Pulse Oximeter Temp 98.0 F Temp Source Temporal Artery Scan Pulse Oximetry (%) 97 Oxygen Delivery Method Room Air Intake Visit Reasons: EP, cough, sinus congestion ([phone]) Intake Note: pt is here for c.o cough, sinus congestion Patient Tobacco Use Status: Former Tobacco user Quit Date: 2021 Allergies ibuprofen Allergy (Unknown, Verified 06/10/23 10:49) Unknown Do you need a note to return to daycare/school/sports/work: Yes HPI HPI Comments History of Present Illness Details 1118 57-year-old male history of anxiety, hyp ertension, ANGELY, chronic diarrhea, presenting to the clinic for sick visit complaining of productive cough, congestion, fatigue, malaise, sinus pressure going on for the past 5-6 days worsening. Not improving. No sick contacts. Denies fevers, chills, chest pain, shortness of breath, nausea, vomiting, abdominal pain, vision changes, dizziness and weakness. Physical examination pressure to face with forward bending and discomfort with palpation of facial sinuses otherwise benign. History and physical exam concerning for viral illness versus sinusitis other differentials include flu/COVID/RSV will not test for these of system will not change my treatment plan. Unlikely pneumonia, pulmonary embolism, meningitis, encephalitis, intracranial hemorrhage or stroke. Plan at this time will treat patient with Augmentin, prednisone and Flonase. Educated patient on diagnosis and treatment plan, answered all question, patient verbalizes understanding. At this time patient will be discharged home, advised to return with new or worsening symptoms. Educated on worrisome signs and symptoms and when to return. At this time I feel comfortable discharge home. COUNT INCLUDES [facility] Medical History Reactive airway disease Anxiety Essential (primary) hypertension Surgical History No pertinent past surgical history Family History Father CVD (cardiovascular disease) Carotid artery disease Mother CVD (cardiovascular disease) Carotid artery disease Brother In good health Son In good health Social History Household Members: Spouse Household Members Other:: 2 Housing: House Do you presently have visiting nurse or other home services: No Alcohol intake: never Patient Tobacco Use Status: Former Tobacco user Quit Date: 2021 Tobacco use type: Cigarette Years Smoked: year ago e-Cigarette/Vaping Use: Never Used Second Hand Smoke Exposure: No service: No Current occupational status: employed Cognitive needs: No Hearing needs: No Vision needs: Yes (glasses) Review of Systems Const Details: Constitutional : No Weight loss, No Fever, No Chills, + Fatigue, + Malaise ENT/Mouth : No sore throat, No Rhinorrhea, + sinus pressure Eyes: No Eye Pain, No Swelling, No Redness Cardiovascular : No Chest Pain, No SOB, No Dyspnea on Exertion, No Orthopnea, No Edema, No Palpitations Respiratory : + Cough, No Sputum, No Wheezing Gastrointestinal : No Nausea, No Vomiting, No Diarrhea, No Constipation, No abdominal Pain, No Hematochezia, No Melena Genitourinary : No Dysuria, No Urinary Frequency, No Hematuria, Musculoskeletal : No joint pain, No Myalgias, No Joint Swelling Skin : No Skin Lesions, No rash Neuro : No Weakness, No Numbness, No Dizziness, No Headache Psych : No Anxiety/Panic, No Depression All other systems reviewed and are negative All systems reviewed & are unremarkable except as noted in HPI and below Physical Exam Vital Signs: Last Vital Signs Temp 98.0 F 06/10/23 10:49 Pulse 86 06/10/23 10:49 BP 172/96 H 06/10/23 10:49 Pulse Ox 97 06/10/23 10:49 Oxygen Delivery Method Room Air 06/10/23 10:49 BMI result Body Mass Index 29.0 Vital signs stable Appearance: Alert.? Oriented X3.? No acute distress.? Head: Normocephalic, atraumatic, no step-offs or deformities pressure to face with forward bending and discomfort with palpation of facial sinuses Eyes: Pupils equal, round and reactive to light.? ENT: Pharynx normal.? Neck: Normal inspection.? Neck supple.? CVS: Normal heart rate and rhythm.? Pulses normal.? Respiratory: No respiratory distress.? Breath sounds normal.? Abdomen: Soft and nontender.? Skin: Skin warm and dry.? Normal skin color.? Normal skin turgor.? Extremities: No lower extremity edema.? No calf ttp. 5/5 strength to bilateral upper and lower extremities Neuro: Oriented X 3.? No motor deficit.? No sensory deficit. CN 2-12 intact Assessment & Plan Assessment & Plan (1) Sinusitis: Code(s): J32.9 - Chronic sinusitis, unspecified Plan Take your medications as prescribed. If you were prescribed antibiotics today, it is important that you take your medication to their entirety, do not skip any doses, do not finish them early. Follow-up with your primary care provider this week. Return to the emergency department with new or worsening symptoms. Such as fevers, chills, chest pain, shortness of breath, nausea, vomiting, dizziness, headache, vision changes, lethargy In case of emergency call 911 Medications: New prednisone 40 mg (2 x 20 mg) PO DAILY 10 tabs 0RF 5 days fluticasone propionate 50 mcg/actuation (Flonase Allergy Relief) administer into each nostril 2 sprays intranasal DAILY 16 grams 0RF amoxicillin-pot clavulanate 875-125 mg 1 tab PO BID 20 tabs 0RF 10 days Coding Level of Care Code Est Pt Level 3 (28081) Diagnoses Sinusitis J32.9
== END 2023-06-10 11:28 | disposition home or self-care (01) ==
PROVIDERS: PCP Physician Assistant; Visit Provider Physician Assistant
DX: J32.9 Chronic sinusitis, unspecified (principal)
CPT/HCPCS: 99213

== ENCOUNTER 2023-06-13 09:28 | Day surgery (SDC) | payer BC, SELFPAY ==
[2023-06-11 12:00] VITALS: BMI 29.9
--- NOTE | 2023-06-11 14:18 | P.CONAN_ITS ---
Documented by User: Ysabel Rodriguez NP 06/11/23 14:18 HPI - Anesthesia Eval Consult details Narrative: 57yo M for Upper Endoscopy and Colonoscopy ON LICENSE OF [facility] Active Problems Active Problems: All Active Problems (Updated 04/15/23 @ 16:08 by Dereje Chen PA-C) GERD (gastroesophageal reflux disease) (Acute) Chronic diarrhea (Acute) Colon cancer screening (Acute) Anemia (Acute) ANGELY (acute kidney injury) (Acute) Weakness (Acute) Gout (Acute) Lateral epicondylitis of right elbow (Acute) Lateral epicondylitis of elbow (Acute) Reactive airway disease (Acute) Anxiety (Acute) Essential (primary) hypertension (Acute) Encounter for general adult medical examination with abnormal findings (Acute) Past Medical History Medical History Reactive airway disease Anxiety Essential (primary) hypertension Family History Family History Father CVD (cardiovascular disease) Carotid artery disease Mother CVD (cardiovascular disease) Carotid artery disease Brother In good health Son In good health Surgical History Surgical History No pertinent past surgical history Social History Social History Household Members: Spouse Household Members Other:: 2 Housing: House Do you presently have visiting nurse or other home services: No Alcohol intake: never Patient Tobacco Use Status: Former Tobacco user Quit Date: 2 years Tobacco use type: Cigarette Years Smoked: year ago e-Cigarette/Vaping Use: Never Used Second Hand Smoke Exposure: No service: No Current occupational status: employed Cognitive needs: No Hearing needs: No Vision needs: Yes (glasses) Meds Allergies Allergy/AdvReac Type Severity Reaction Status Date / Time ibuprofen Allergy Unknown Hives Verified 06/13/23 09:36 Exam Height,Weight and Vital Signs: Height 5 ft 6 in Weight 83.915 kg Assessment and Plan Assessment Anesthesia Assessment: Chart Reviewed Documented by User: Leonela Plummer MD 06/13/23 09:56 PMFSH Past Medical History Medical History Reactive airway disease Anxiety Essential (primary) hypertension Family History Family History Father CVD (cardiovascular disease) Carotid artery disease Mother CVD (cardiovascular disease) Carotid artery disease Brother In good health Son In good health Surgical History Surgical History No pertinent past surgical history History of Problems with Anesthesia: No Social History Social History Household Members: Spouse Household Members Other:: 2 Housing: House Do you presently have visiting nurse or other home services: No Alcohol intake: never Patient Tobacco Use Status: Former Tobacco user Quit Date: 2 years Tobacco use type: Cigarette Years Smoked: year ago e-Cigarette/Vaping Use: Never Used Second Hand Smoke Exposure: No service: No Current occupational status: employed Cognitive needs: No Hearing needs: No Vision needs: Yes (glasses) Meds Allergies Allergy/AdvReac Type Severity Reaction Status Date / Time ibuprofen Allergy Unknown Hives Verified 06/13/23 09:36 Exam Airway Mallampati Class: II TM Dist: >3cm Neck ROM: Full Loose/Missing/Broken Teeth: No Heart: RRR Lungs: CTA Assessment and Plan Assessment Anesthesia Assessment: Anesthesia Plan Discussed Final Anesthetic Review History of Problems with Anesthesia: No NPO: Yes ASA Class: II Final Preanesthetic Review: Meds/Allgs Chart Reviewed, Consent Obtained/Reviewed and Anes Risks/Benef Reviewed Patient Risk: Low Procedure Risk: Intermediate Anesthetic Plan Anesthetic Plan: MAC: Disposition: Standard PACU
[2023-06-13 09:29] VITALS: BMI 29.3
[2023-06-13 09:58] VITALS: BP 166/100; PULSE 83; RESP 16; TEMP 36.4; O2SAT 98
[2023-06-13] MEDS: Lactated Ringers 1,000 ML 100 ML IVCONT (09:59)
--- NOTE | 2023-06-13 10:03 | P.HPSUR_ITS ---
Pre-Procedural Eval Section A Date of Service: 06/13/23 Section B Chief Complaint: Encounter for screening for malignant neoplasm of Details of Present Illness: see H&P no changes Relevant Family History (Specify if Yes): No Relevant Social History: None Present Medications: see Short Stay Collaborative assessment Medical History: No relevant PMH History of Previous Operations: No relevant previous surgery Allergies: Allergies Allergy/AdvReac Type Severity Reaction Status Date / Time ibuprofen Allergy Unknown Hives Verified 06/13/23 09:36 Review of Systems Sugical H&P ROS: Negative: Constitution, Cardiovascular, Respiratory, Neur ological, Psychiatric, Hem-Onc, Allergic/Immunologic, Gastrointestinal, Genitourinary, Musculoskeletal, Integumentary, Endocrine and Eyes/Ears/Nose/Throat Exam Surgical H&P Exam: Normal: HEENT, Normal: Heart, Normal: Lungs, Normal: Extremities, Normal: Abdomen, Normal: Skin and Normal: Neurological Plan Diagnosis/Plan: Unchanged I have reviewed the history and physical and performed a pertinent physical examination on my patient. No changes have occurred unless specified. Time Spent With Patient Time: Total time managing care of this patient today ____ minutes.
[2023-06-13 10:55] VITALS: BP 122/100; PULSE 100; RESP 16; TEMP 37.3; O2SAT 98
[2023-06-13 11:10] VITALS: BP 144/90; PULSE 96; RESP 18; TEMP 36.8; O2SAT 98
--- NOTE | 2023-06-13 11:20 | OP_ITS ---
DATE OF SERVICE: 06/13/2023 SURGEON: Nicholas Vila MD INDICATIONS: Iron-deficiency anemia. PREOPERATIVE DIAGNOSIS: POSTOPERATIVE DIAGNOSIS: PROCEDURE PERFORMED: ESTIMATED BLOOD LOSS: COMPLICATIONS: ANESTHESIA: Monitored anesthesia care. ASSISTANTS: SPECIMENS: PROCEDURES PERFORMED: Upper endoscopy with biopsy, colonoscopy to the cecum. DESCRIPTION OF PROCEDURE: A history and physical were performed. The risks and benefits of the procedure were explained to the patient and informed consent was obtained. The patient was placed in the left lateral decubitus position. A digital rectal exam was performed and was found to be normal. The Olympus pediatric video colonoscope was introduced into the rectum and advanced to the cecum. The cecum was identified by transillumination, palpation, and identification of ileocecal valve. Examination was performed and the scope was removed. He tolerated both procedures well and was taken to recovery in stable condition. FINDINGS: Upper endoscopy: Esophagus: The esophagus showed an irregular EG junction. This was biopsied. Stomach: The stomach was normal. Antral biopsies were obtained to evaluate for H. pylori. Duodenum; there was scalloping of the second portion of the duodenum, consistent with celiac disease. Biopsies were obtained from the second portion. Colonoscopy. The terminal ileum was not examined. The visualized colonic mucosa was normal. There was stool present in the cecum and descending/transverse colon, which limited the sensitivity examination. This was washed and suctioned. No polyps were identified. The mucosa appeared normal without evidence of colitis. Retroflexed examination showed some internal hemorrhoids. IMPRESSION: 1. Iron-deficiency anemia. 2. Rule out celiac disease. 3. Normal colonoscopy. RECOMMENDATIONS: 1. Follow up the biopsy results. 2. Repeat colonoscopy is recommended in 10 years for average risk individuals. MD MARGOT Munoz/JASMYN / [id number]
== END 2023-06-13 11:38 | disposition home or self-care (01) ==
PROVIDERS: PCP Physician Assistant; Visit Provider Internal Medicine Gastroenterology
PROC: (CPT 45378; principal; 2023-06-13 10:40)
DX: D50.9 Iron deficiency anemia, unspecified (principal); K64.8 Other hemorrhoids; K29.50 Unspecified chronic gastritis without bleeding; K29.80 Duodenitis without bleeding; K21.9 Gastro-esophageal reflux disease without esophagitis; I10 Essential (primary) hypertension; F41.9 Anxiety disorder, unspecified; J45.909 Unspecified asthma, uncomplicated; Z79.899 Other long term (current) drug therapy; Z88.8 Allergy status to other drugs, medicaments and biological substances; Z87.891 Personal history of nicotine dependence
CPT/HCPCS: 45378; 43239; 88305; 88342; J2250; J2704

== ENCOUNTER 2024-04-17 09:57 | Outpatient (REF) | payer BC, SELFPAY ==
[2024-04-17 11:00] LABS: Hematocrit 39.3 % (42.0-52.0); Hemoglobin 13.3 g/dl (14.0-18.0); Mean Corpuscular HGB Conc 33.8 g/dl (31.0-36.0); Mean Corpuscular Volume 82.7 fL (80.0-98.0); Mean Platelet Volume 10.4 fL (9.4-12.4); Platelet Count 315 X10*3/uL (160-400); Red Blood Count 4.75 X10*6/uL (4.60-5.80); White Blood Count 8.9 X10*3/uL (4.8-10.8)
[2024-04-17 11:45] LABS: Alanine Aminotransferase 29 U/L (0-40); Albumin Level 4.2 g/dL (3.5-5.0); Alkaline Phosphatase 72 U/L (39-117); Anion Gap 12 (12-20); Aspartate Amino Transferase 27 U/L (5-37); Bilirubin Total 0.5 mg/dL (0.0-1.0); Blood Urea Nitrogen 13 mg/dL (9-16); Calcium 8.9 mg/dL (8.4-10.2); Carbon Dioxide 25 mmol/L (22-29); Chloride 106 mmol/L (96-108); Estimated Glomerular Filt Rate > 60; Glucose Fasting 110 mg/dL (60-99); Potassium 3.7 mmol/L (3.3-5.1); Sodium 139 mmol/L (135-145); Total Protein 6.7 g/dL (6.5-8.0)
[2024-04-17 11:52] LABS: Creatinine Urine 125.61 mg/dL; Microalbum/Creatinine Ratio Ur 4.7 ug/mg cr (<30)
[2024-04-17 11:59] LABS: Prostate Specific Antigen Scr 3.46 ng/mL (<0.05-4.0)
== END 2024-04-17 09:58 | disposition home or self-care (01) ==
LOC: HO.LAB 09:57
PROVIDERS: PCP Physician Assistant; Visit Provider Physician Assistant
DX: I10 Essential (primary) hypertension (principal); K21.9 Gastro-esophageal reflux disease without esophagitis; Z12.5 Encounter for screening for malignant neoplasm of prostate
CPT/HCPCS: 36415; 80053; 82043; 82570; 84153; 85027

== ENCOUNTER 2024-04-20 15:31 | Outpatient (AMB) | payer BC, SELFPAY ==
--- NOTE | 2024-04-20 15:47 | MHC.PC.OV ---
Vital Signs 04/20/24 15:48 Height 5 ft 6 in Weight 185 lb 2 oz BMI 29.9 BP 110/72 Blood Pressure Location Lt brachial Position Sitting Pulse 87 Pulse Source Pulse Oximeter Pulse Oximetry (%) 98 Oxygen Delivery Method Room Air Intake Visit Reasons: BP check and Med Health Information Management Director Required: No Accompanied by: Self / Same As Patient Allergies ibuprofen Allergy (Unknown, Verified 04/20/24 15:55) Hives Medication List - Last Reconciled 04/20/24 by Dereje Chen PA-C albuterol sulfate 90 mcg/actuation 2 puffs PO Q6H clonazepam 0.25 mg (1/2 x 0.5 mg) PO BEDTIME PRN ferrous sulfate 325 mg PO BID 30 days fluticasone propionate 50 mcg/actuation (Flonase Allergy Relief) 2 sprays intranasal DAILY lisinopril-hydrochlorothiazide 20-12.5 mg 1 tab PO DAILY 90 days omeprazole 20 mg PO DAILY 15 days Tobacco use date assessed: 04/20/24 Dental Screening Dental Screen Date: 04/20/24 Did you have a dental visit in the last 12 months?: Yes Did you have a dental problem in the last 6 months where you did not have access to dental care?: No Was dental information given to patient?: Patient has dentist HPI BP check and Med HPI Details Patient is a 58-year-old male here today for follow-up visit. Patient has a past medical history significant for hypertension, anxiety, GERD. Concern--> patient reports ever since having COVID infection his sinuses and nasal pressures have been somewhat dry. Does use an allergy nasal spray on an as needed basis. . Anemia: Patient's anemia has improved though still has slightly low red blood cell and hemoglobin. He does use iron on an as needed basis. MCV normal. Likely has anemia of chronic disease Patient's blood pressure today in office acceptable. He reports he is consistent with taking his blood pressure medication. Impaired glucose metabolism: Most recent fasting blood sugar at 110. .. Patient is concerned about his family history of coronary artery disease. He reports his brother had heart surgery recently. Will check patient's lipid panel Laboratory Tests 04/15/23 04/17/24 04/17/24 16:43 10:14 10:15 Hgb 10.9 L 13.3 L D Hct 34.7 L 39.3 L Creatinine 0.78 Fasting Glucose 110 H PSA Screen 3.46 Urine Microalbumin 6.0 [facility] Medical History (Updated 04/21/24 @ 07:44 by Dereje Chen PA-C) Gout Reactive airway disease Anxiety Essential (primary) hypertension Surgical History No pertinent past surgical history Family History Father CVD (cardiovascular disease) Carotid artery disease Mother CVD (cardiovascular disease) Carotid artery disease Brother In good health Son In good health Social History Household Members: Spouse Household Members Other:: 2 Housing: House Do you presently have visiting nurse or other home services: No Alcohol intake: never Patient Tobacco Use Status: Former Tobacco user Tobacco use type: Cigarette Years Smoked: year ago e-Cigarette/Vaping Use: Never Used Second Hand Smoke Exposure: No service: No Current occupational status: employed Cognitive needs: No Hearing needs: No Vision needs: Yes (glasses) Questionnaire PHQ-9 Over the last 2 weeks, how often have you been bothered by any of the following problems? 1. Little interest or pleasure in doing things: not at all 2. Feeling down, depressed, or hopeless: not at all 3. Trouble falling or staying asleep, or sleeping too much: not at all 4. Feeling tired or having little energy: not at all 5. Poor appetite or overeating: not at all 6. Feeling bad about yourself - or that you are a failure or have let yourself or your family down: not at all 7. Trouble concentrating on things, such as reading the newspaper or watching television: not at all 8. Moving or speaking so slowly that other people could have noticed. Or the opposite - being so fidgety or restless that you have been moving around a lot more than usual: not at all 9. Thoughts that you would be better off or of hurting yourself in some way: not at all Total score: 0 Depression Screening Interpretation: Negative Depression Screening Done: Yes 92852 - PHQ-9 Billing: Yes Source: Developed by Drs. Baltazar Suarez, Russell Dubon and colleagues, with an educational alex from [employer]. Thrive Questionnaire Date Thrive assessed: 04/20/24 I am a: Patient What is your living situation today?: I have a steady place to live Within the past 12 months, did the food you bought not last and you didn't have the money to get more?: Never true Within the past 12 months, did you worry whether your food would run out before you got money to buy more?: Never true Do you have trouble paying for medicines?: No Do you have trouble getting transportation to medical appointments?: No Do you have trouble paying your heating and electricity bill?: No Do you have trouble taking care of your child, family member or friend?: No Do you have trouble with day-to-day activities such as bathing, preparing meals, shopping, managing finances, etc.?: No Are you currently unemployed and looking for a job?: No Are you interested in more education?: No Please select the resources that you would like help with: None Currently or been in a relationship where the following occur: No concerns reported THRIVE Score: 0 AUDIT C Alcohol Use Questionnaire (AUDIT-C) 1. How often do you have a drink containing alcohol?: Monthly or less 2. How many drinks containing alcohol do you have on a typical day when you are drinking?: 1 or 2 Total Score: 1 CLARICE-7 AMB Questionnaire CLARICE-7 Date CLARICE - 7 assessed: 04/20/24 Feeling nervous, anxious, or on edge: 0 = Not at all Not being able to stop or control worryin = Not at all Worrying too much about different things: 0 = Not at all Trouble relaxin = Not at all Being so restless that it is hard to sit still: 0 = Not at all Becoming easily annoyed or irritable: 0 = Not at all Feeling afraid as if something awful might happen: 0 = Not at all Total CLARICE-7 score (0-4 normal; 5-9 mild; 10-14 moderate; 15-21 severe): 0 Source: Developed by Drs. Baltazar Suarez, Russell Dubon and colleagues, with an educational alex from [employer]. CLARICE-7 Assessment Billing CLARICE-7 Assessment Tool: CLARICE-7 Assessment 27620 Review of Systems Const Denies headache(s) Eyes Denies loss of vision ENT Denies vertigo, Denies dizziness, Denies headache(s) and Denies sore throat Card Denies chest pain, Denies leg edema and Denies lightheadedness Resp Denies cough, Denies hemoptysis and Denies wheezing GI Denies abdominal pain, Denies melena, Denies constipation, Denies diarrhea and Denies vomiting Denies dysuria, Denies urinary frequency and Denies urinary urgency Musc Denies arthralgias, Denies joint swelling, Denies numbness and Denies tingling Neuro Denies Abnormal speech present, Denies behavioral changes, Denies vertigo, Denies dizziness, Denies headache(s), Denies loss of vision, Denies memory loss, Denies numbness and Denies tingling Psych Denies anxiety, Denies behavioral changes, Denies depression, Denies memory loss and Denies panic attacks Randy/Lymph Denies easy bleeding and Denies easy bruising Aller/Immun Denies wheezing Physical exam (Primary Care) Vital Signs: Last Vital Signs Pulse 87 04/20/24 15:48 BP 110/72 04/20/24 15:48 Pulse Ox 98 04/20/24 15:48 Oxygen Delivery Method Room Air 04/20/24 15:48 BMI result Body Mass Index 29.9 Tobacco/Smoking Status: Tobacco use Status Tobacco use date assessed 04/20/24 04/20/24 15:53 Patient Tobacco Use Status Former Tobacco user 04/20/24 15:47 Tobacco use type Cigarette 04/20/24 15:47 e-Cigarette/Vaping Use Never Used 04/20/24 15:47 PHQ-9: PHQ-9 Score PHQ-9: Total score 0 04/20/24 15:57 Depression Screening Interpretation: Negative Thrive Assessment: Date of Thrive Assessment Date Thrive assessed 04/20/24 04/20/24 15:53 Currently or been in a relationship where the following occur: No concerns reported Const General: healthy appearing, no acute distress, alert and awake Nutritional Appearance: well nourished Orientation/consciousness: oriented to person, oriented to place and oriented to time HENMT Ears: TM's normal bilaterally General nose exam: Normal nasal mucous membranes and turbinates present Eyes Conjunctivae: conjunctivae normal Sclerae: sclerae normal Pupils: Equal, round and reactive pupils present Neck Neck: Yes no lymphadenopathy and Yes no JVD Thyroid: Thyroid normal Carotids: no bruits Resp Effort & Inspection: normal respiratory effort and not tachypneic Auscultation: no crackles, no rales, no rhonchi and no wheezes Cardio Rate: regular rate Rhythm: regular rhythm Heart sounds: no murmurs and normal S1 and S2 GI Palpation (GI): Soft to palpation, nontender, no hepatomegaly and no splenomegaly Auscultation: normal bowel sounds Skin General skin exam: no rashes or lesions noted and dry skin Neuro General: oriented to person, oriented to place and oriented to time Cranial nerves: Yes Equal, round and reactive pupils present Speech: No Abnormal speech present Gait exam (Neuro): Normal gait present Motor exam (neuro): no tremor noted Extrem Right upper extremity: full ROM Left upper extremity: full ROM Right lower extremity: full ROM; no edema Left lower extremity: full ROM; no edema Psych Mental Status: mental status grossly normal Speech and movement: Normal speech and movement present Affect: normal affect Attitude: cooperative Thought process: Normal thought process present Office Procedures Flu Questionnaire Does the patient have a severe egg allergy?: No Does the patient have severe life threatening allergies?: No Does the patient have a fever or illness today?: No Has the patient ever had Guillain-Moss Syndrome?: No Has the patient ever had any past reaction to a flu shot?: No Immunizations Fluarix Triv [id number] (PF) 45 mcg (15 mcg x 3)/0.5 mL IM syringe Performing Provider: Dereje Chen PA-C [facility] Documented (not given) by: PARISH Christian on 04/20/24 15:50 Reason Not Given: Received Previously Coding Level of Care Code Est Pt Level 4 (06064) Diagnoses Essential (primary) hypertension I10 Family history of early CAD Z82.49 Impaired glucose metabolism R73.09 Anxiety F41.9 Additional Codes CLARICE-7 Assessment Billing - CLARICE-7 Assessment Tool: CLARICE-7 Assessment 00431 ([id number]) Assessment & Plan Assessment & Plan (1) Essential (primary) hypertension: Code(s): I10 - Essential (primary) hypertension Category: Medical Plan: Patient's blood pressure acceptable today in office. Will continue him on his current dose of lisinopril with goal blood pressure to be below 140/90 (2) Family history of early CAD: Code(s): Z82.49 - Family history of ischemic heart disease and other diseases of the circulatory system Category: Medical Plan: As per HPI patient does report having a brother with early coronary artery disease. Will check patient's lipid panel to assure appropriate total cholesterol and LDL. (3) Impaired glucose metabolism: Code(s): R73.09 - Other abnormal glucose Category: Medical Plan: Most recent fasting labs showing slightly elevated fasting blood sugar 110. He will work on lifestyle and dietary modifications to reduce his sugar. (4) Anxiety: Code(s): F41.9 - Anxiety disorder, unspecified Category: Medical Plan: Patient does suffer from anxiety to which he uses clonazepam on an as needed basis. He reports most of anxiety stemming from stress related to work. Did discuss the habit-forming nature of benzodiazepines and patient does understand and will only use clonazepam on a emergency/as needed basis only. Orders: Orders Influenza [id number] Immunization 04/20/24 Z23 - Encounter for immunization IRON PROFILE 04/20/24 D50.9 - Iron deficiency anemia, unspecified, D64.89 - Other specified anemias Hemoglobin A1c 04/20/24 R73.09 - Other abnormal glucose Lipid Panel 04/20/24 Z82.49 - Family history of ischemic heart disease and other diseases of the circulatory system Complete Blood Count no Diff 04/20/24 D64.89 - Other specified anemias Microalbumin, Random (w Creat) 04/20/24 I10 - Essential (primary) hypertension Comprehensive [place]. Panel Fast 04/20/24 I10 - Essential (primary) hypertension Medications: Refilled clonazepam administer 30 minutes before bedtime 0.25 mg (1/2 x 0.5 mg) PO BEDTIME PRN 30 tabs 0RF anxiety F41.9 - Anxiety disorder, unspecified fluticasone propionate 50 mcg/actuation (Flonase Allergy Relief) administer into each nostril 2 sprays intranasal DAILY 16 grams 0RF lisinopril-hydrochlorothiazide 20-12.5 mg 1 tab PO DAILY 90 tabs 0RF 90 days I10 - Essential (primary) hypertension omeprazole 20 mg PO DAILY 15 caps 0RF 15 days K21.9 - Gastro-esophageal reflux disease without esophagitis Patient Instructions: Goal: Blood pressure to remain below 140/90 Barriers: Adherence to physical activity and healthy eating habits
[2024-04-20 15:48] VITALS: BP 110/72; PULSE 87; O2SAT 98; BMI 29.9
== END 2024-04-20 16:19 | disposition home or self-care (01) ==
PROVIDERS: PCP Physician Assistant; Visit Provider Physician Assistant
DX: I10 Essential (primary) hypertension (principal); Z82.49 Family history of ischemic heart disease and other diseases of the circulatory system; R73.09 Other abnormal glucose; F41.9 Anxiety disorder, unspecified

== ENCOUNTER → 2024-04-20 15:31 | Outpatient (BNVA) | payer BC, SELFPAY | PROVIDERS: PCP Physician Assistant; Visit Provider Physician Assistant | DX: I10 Essential (primary) hypertension (principal); R73.09 Other abnormal glucose; F41.9 Anxiety disorder, unspecified; Z79.899 Other long term (current) drug therapy; Z82.49 Family history of ischemic heart disease and other diseases of the circulatory system | CPT/HCPCS: 90471; 96127 ==

== ENCOUNTER 2024-08-03 08:44 | Outpatient (REF) | payer BC, SELFPAY ==
[2024-08-03 16:01] LABS: Influenza A PCR NEGATIVE (Negative); Influenza B PCR NEGATIVE (Negative); Resp Syncy Virus RNA Qual PCR NEGATIVE (Negative); SARS COV2 PCR INHOUSE NEGATIVE (Negative)
== END 2024-08-03 08:45 | disposition home or self-care (01) ==
LOC: HO.LNP 08:44
PROVIDERS: Physician Assistant; PCP Physician Assistant
DX: J06.9 Acute upper respiratory infection, unspecified (principal)
CPT/HCPCS: 0241U

== ENCOUNTER 2024-08-03 08:44 | Outpatient (AMB) | payer BC, SELFPAY ==
--- OUTSIDE RECORDS SUMMARY | 2024-08-03 09:05 | XMS_ITS ---
Author Organization [facility] Address [address] [place] [address] Care Team Providers Care Switchboard Clerk Name Role Phone Dereje Chen Primary Care Provider Unavailab Nicholas Sim Jr REASON FOR VISIT Pt no showed Encounters Encounter Location Date Provider Diagnosis [facility] [address] [place] [address] 01/29/2024 Nicholas Vila Jr PLAN OF TREATMENT No Information
--- OUTSIDE RECORDS SUMMARY | 2024-08-03 09:05 | XMS_ITS ---
Author Organization [facility] Address [address] [place] [phone] Care Team Providers Care Service Center Supervisor Name Role Phone Dereje Chen Primary Care Provider Unavailab Nicholas Sim Jr [phone] REASON FOR VISIT Patient presents today for iron def anemia, reflux Encounters Encounter Location Date Provider Diagnosis [facility] [address] [place] [phone] 01/29/2024 Nicholas Vila Jr PLAN OF TREATMENT No Information
--- OUTSIDE RECORDS SUMMARY | 2024-08-03 09:05 | XMS_ITS ---
Author Organization [facility] Address [address] [place] [id number] Care Team Providers Care Therapist Name Role Phone Dereje Chen Primary Care Provider Unavailab Nicholas Sim Jr [phone] REASON FOR VISIT Patient presents today for iron def anemia, reflux Encounters Encounter Location Date Provider Diagnosis [facility] [address] [place] [id number] 10/16/2023 Nicholas Vila Jr PLAN OF TREATMENT No Information
--- OUTSIDE RECORDS SUMMARY | 2024-08-03 09:05 | XMS_ITS | Patient Health Record ---
Author Organization [facility] Address [address] [place] [phone] Care Team Providers Care Personnel Monitor Name Role Phone Dereje Chen Primary Care Provider Unavailab Nicholas Sim Jr Unavailable ALLERGIES Allergen (clinical drug ingredient) Drug/Non Drug Allergy documented on EMR Reaction Allergy Type Onset Date Status ibuprofen Ibuprofen Unknown Drug Allergy Active REASON FOR REFERRAL No Information MEDICATIONS Medication SIG (Take, Route, Frequency, Duration) Notes Start Date End Date Status Calcium Active Vitamin D Active MiraLax (colon prep) 17 GM/SCOOP mixed with Gatorade or Crystal Light Orally begin at 5:00 p.m. the day before the procedure for 1 day 05/07/2023 Active Lisinopril-hydroCHLOROthia zide 20-12.5 MG TAKE 1 TABLET BY MOUTH EVERY DAY Orally Once a day Active Omeprazole 20 MG 1 capsule 30 minutes before morning meal Orally Once a day for 30 day(s) 06/25/2023 Active Iron (Ferrous Sulfate) 325 (65 Fe) MG 1 tablet Orally Three times a Week for 30 day(s) Activ e IMMUNIZATIONS Vaccine Route Administration Date Status Comme nts Influenza Unknown 04/20/2019 Administered Influenza Unknown 04/29/2023 Administered SOCIAL HISTORY Tobacco Use: Social History Observation Description Date Details (start date - stop date) Former Smoker NA - NA Sex Assigned At : Social History Observation Description Sex Assigned At Unknown Tobacco Use/Smoking Question Answer Notes Patient is a former smoker When did you stop smoking? 2 years ago How long has it been since you last smoked? 1-5 years Alcohol Screen Question Answer Notes Did you have a drink contain ing alcohol in the past year? Yes How often did you have a dri nk containing alcohol in the past year? Monthly or less (1 point) How many drinks did you have on a typical day when you were drinking in the past year? 1 or 2 drinks (0 point) How often did you have 6 or more drinks on one occasion in the past year? Never (0 point) Points 1 Interpretation Negative PROBLEMS Problem Type ICD Code Onset Dates Problem Status W/U Status Risk SNOMED Code Notes Problem Colon cancer screening (Z12.11) Active confirmed 888457791 Problem Epigastric pain (R10.13) Active confirmed 49690529 Problem Iron deficiency anemia, unspecified iron deficiency anemia type (D50.9) Active confirmed 05237119 Problem Iron deficiency anemia (D50.9) Active confirmed Iron deficiency anemia (35296574) Problem Duodenitis (K29.80) Active confirmed 74808116 Encounters Encounter Location Date Provider Diagnosis [facility] [address] [place] [phone] 10/16/2023 Nicholas Vila Jr [facility] [address] [place] [phone] 01/29/2024 Nicholas Vila Jr [facility] [address] [place] [phone] 01/29/2024 Nicholas Vila Jr PLAN OF TREATMENT Pending Test Test Name Order Date LIVER PROFILE 06/25/2023 LIPASE 06/25/2023 IRON + IBC (FE) 06/25/2023 FERRITIN 06/25/2023 CBC w/o DIFF 06/25/2023 CELIAC DISEASE ANTIBODY PANEL 06/25/2023 Future Test Test Name Order Date COLONOSCOPY 08/19/2019 UPPER GI ENDOSCOPY 05/07/2023 COLONOSCOPY 05/07/2023 Insurance Providers Payer Name Payer Address Payer Phone Subscriber Number Group Number Insured Name Patient Relationship to Insured Coverage Start Date Coverage End Date [facility] [address] [place], [place] [id number] [phone] [id number] TOR ISNEIL Self - patient is the insured MEDICAL (GENERAL) HISTORY Medical History History ICD Code hypertension Iron deficiency anemia Surgical History Surgery Date(Month/Year) Hospitalization History Reason Date(Month/Year) Dehydration, diarrhea and acute renal fa ilure 5/
--- NOTE | 2024-08-03 09:40 | AM.OFFWIN_ITS ---
Intake Vital Signs 08/03/24 09:42 Weight 183 lb BP 130/90 H Blood Pressure Location Rt brachial Position Sitting Pulse 78 Pulse Source Pulse Oximeter Temp 98.2 F Temp Source Oral Pulse Oximetry (%) 97 Oxygen Delivery Method Room Air Intake Visit Reasons: EP cough, lung pain Intake Note: Patient here for cough and chest tightness which has been present for a couple of days. Patient Tobacco Use Status: Former Tobacco user Allergies ibuprofen Allergy (Unknown, Verified 08/03/24 09:42) Hives Do you need a note to return to daycare/school/sports/work: Yes HPI HPI Comments History of Present Illness Details This is a 59-year-old male with a past medical history of hypertension and asthma presenting for evaluation cough that he has had for the past 2 days. Patient states that he had cold symptoms approximately 2 weeks ago which resolved however 2 days ago he developed a cough which is worse at night. Patient denies having any fevers, chills, otalgia, chest pain or pharyngitis. Patient has been taking Mucinex for relief of his cough and is requesting a refill of his albuterol inhaler. [facility] Medical History (Updated 08/03/24 @ 10:15 by Coby Moura PA-C) Gout Reactive airway disease Anxiety Essential (primary) hypertension Surgical History No pertinent past surgical history Family History Father CVD (cardiovascular disease) Carotid artery disease Mother CVD (cardiovascular disease) Carotid artery disease Brother In good health Son In good health Social History Household Members: Spouse Household Members Other:: 2 Housing: House Do you presently have visiting nurse or other home services: No Alcohol intake: never Patient Tobacco Use Status: Former Tobacco user Tobacco use type: Cigarette Years Smoked: year ago e-Cigarette/Vaping Use: Never Used Second Hand Smoke Exposure: No service: No Current occupational status: employed Cognitive needs: No Hearing needs: No Vision needs: Yes (glasses) Review of Systems Const All systems reviewed & are unremarkable except as noted in HPI and below Denies chills, Denies fatigue, Denies fever(s) and Denies malaise Eyes Reports no additional complaints ENT Reports no additional complaints, Denies otalgia, Denies facial pain, Denies post nasal drip and Denies sore throat Card Reports no additional complaints, Denies chest pain, Denies dyspnea and Denies dyspnea on exertion Resp Reports cough, Denies hemoptysis, Denies dyspnea and Denies dyspnea on exertion GI Reports no additional complaints Reports no additional complaints Musc Reports no additional complaints Skin/Breast Reports system reviewed and no additional complaints, except as documented Neuro Reports no additional complaints Psych Reports no additional complaints Endo Reports no additional complaints and Denies fatigue Randy/Lymph Reports no additional complaints Aller/Immun Reports no additional complaints Physical Exam Vital Signs: Last Vital Signs Temp 98.2 F 08/03/24 09:42 Pulse 78 08/03/24 09:42 BP 130/90 H 08/03/24 09:42 Pulse Ox 97 08/03/24 09:42 Oxygen Delivery Method Room Air 08/03/24 09:42 Const General: cooperative, healthy appearing, comfortable, no acute distress, well developed, alert, awake and Physically active; No acute distress or lethargic Nutritional Appearance: average body habitus Orientation/consciousness: patient oriented x3 and No lethargic Limitations: no limitations HEENT Head: Yes normal to inspection and Yes normocephalic Ears: hearing grossly normal bilaterally, external ears normal, TM's normal bilaterally and EAC's normal General nose exam: Normal external nose present Face and sinus: Yes normal facial exam and Yes sinuses nontender Mouth: Normal oral and palatal mucosa present Throat: Yes posterior oropharynx normal and No postnasal drainage Eyes General: appearance normal, both eyes and all related structures Neck Lymphatic: no lymphadenopathy noted Resp Effort & Inspection: normal respiratory effort, able to speak in complete sentences, no audible wheezes, no cough, no respiratory distress and not tachypneic Auscultation: clear to auscultation bilaterally Cardio Rate: regular rate Rhythm: regular rhythm Skin General skin exam: no rashes or lesions noted Neuro General: patient oriented x3 Psych Appearance: grossly normal Mental Status: mental status grossly normal Insight: Good insight present (Psych) Judgement: Good judgement present (Psych) Assessment & Plan Assessment & Plan (1) Acute upper respiratory infection: Comment: SARS panel is ordered and results are pending. Patient will continue to take Mucinex and a refill of his albuterol inhaler is provided. Code(s): J06.9 - Acute upper respiratory infection, unspecified Plan: Mucinex OTC, Tylenol or ibuprofen as needed for discomfort, albuterol inhaler q.6 hours p.r.n. bronchospasm. Orders: Orders SARS-CoV2/FLU/RSV Today J06.9 - Acute upper respiratory infection, unspecified Medications: New albuterol sulfate 90 mcg/actuation 2 puffs inhalation Q6H PRN 8.5 grams 0RF shortness of breath or wheezing Coding Level of Care Code Est Pt Level 3 (79015) Diagnoses Acute upper respiratory infection J06.9 Time Spent (min) 20
[2024-08-03 09:42] VITALS: BP 130/90; PULSE 78; TEMP 36.8; O2SAT 97
== END 2024-08-03 10:57 | disposition home or self-care (01) ==
PROVIDERS: PCP Physician Assistant; Visit Provider Physician Assistant
DX: J06.9 Acute upper respiratory infection, unspecified (principal)

== ENCOUNTER → 2024-08-26 12:04 | Outpatient (BNVA) | payer OTHER, SELFPAY | PROVIDERS: PCP Physician Assistant; Visit Provider Physician Assistant | DX: S43.401A Unspecified sprain of right shoulder joint, initial encounter (principal); X50.1XXA Overexertion from prolonged static or awkward postures, initial encounter | CPT/HCPCS: 73030; 99203 ==

== ENCOUNTER → 2024-09-09 15:07 | Outpatient (BNVA) | payer OTHER, SELFPAY | PROVIDERS: PCP Physician Assistant; Visit Provider Physician Assistant Medical | DX: S43.431D Superior glenoid labrum lesion of right shoulder, subsequent encounter (principal); X50.1XXD Overexertion from prolonged static or awkward postures, subsequent encounter | CPT/HCPCS: 99214 ==

== ENCOUNTER → 2024-09-23 15:02 | Outpatient (BNVA) | payer OTHER, SELFPAY | PROVIDERS: PCP Physician Assistant; Visit Provider Physician Assistant | DX: S43.401D Unspecified sprain of right shoulder joint, subsequent encounter (principal); X50.1XXD Overexertion from prolonged static or awkward postures, subsequent encounter | CPT/HCPCS: 99213 ==

== ENCOUNTER → 2024-10-15 13:04 | Outpatient (BNVA) | payer OTHER, SELFPAY | PROVIDERS: PCP Physician Assistant; Visit Provider Physician Assistant | DX: S43.401D Unspecified sprain of right shoulder joint, subsequent encounter (principal); X50.1XXD Overexertion from prolonged static or awkward postures, subsequent encounter | CPT/HCPCS: 99213 ==

== ENCOUNTER 2024-10-31 08:24 | Outpatient (REF) | payer OTHER, SELFPAY | END 2024-10-31 08:25 | disposition home or self-care (01) | LOC: HO.MRI 08:24 | PROVIDERS: PCP Physician Assistant; Visit Provider Internal Medicine | DX: M25.511 Pain in right shoulder (principal) | CPT/HCPCS: 73221 ==

== ENCOUNTER → 2024-10-31 08:30 | Outpatient (BNV) | payer OTHER, SELFPAY | PROVIDERS: PCP Physician Assistant; Visit Provider Radiology Diagnostic Radiology | DX: S46.011A Strain of muscle(s) and tendon(s) of the rotator cuff of right shoulder, initial encounter (principal); M75.51 Bursitis of right shoulder | CPT/HCPCS: 73221 ==

== ENCOUNTER → 2024-11-04 15:32 | Outpatient (BNVA) | payer OTHER, SELFPAY | PROVIDERS: PCP Physician Assistant; Visit Provider Physician Assistant | DX: S43.401D Unspecified sprain of right shoulder joint, subsequent encounter (principal); X50.1XXD Overexertion from prolonged static or awkward postures, subsequent encounter; M70.861 Other soft tissue disorders related to use, overuse and pressure, right lower leg | CPT/HCPCS: 99214 ==

== ENCOUNTER → 2024-11-25 15:39 | Outpatient (BNVA) | payer BC, OTHER, SELFPAY | PROVIDERS: PCP Physician Assistant; Visit Provider Physician Assistant | DX: Z13.89 Encounter for screening for other disorder (principal) ==

== ENCOUNTER 2025-01-05 13:07 | Outpatient (AMB) | payer OTHER, SELFPAY ==
--- NOTE | 2025-01-05 13:12 | A.OFFVIS_ITS ---
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 Patient was seen at work connection, MRI was obtained. Patient has been attending physical therapy at [facility] with little improvement. Patient states moderate pain in his shoulder that comes and goes, and increases with lifting motions. He is currently working with light duty with lifting restrictions of 5-10 pounds. Allergies ibuprofen Allergy (Unknown, Verified 08/03/24 09:42) Hives Medication List - Last Reconciled 01/05/25 by Kinjal Aleman PA-C albuterol sulfate 90 mcg/actuation 2 puffs PO Q6H albuterol sulfate 90 mcg/actuation 2 puffs inhalation Q6H PRN clonazepam 0.25 mg (1/2 x 0.5 mg) PO BEDTIME 30 days cyclobenzaprine 10 mg PO TID PRN ferrous sulfate 325 mg PO BID 30 days fluticasone propionate 50 mcg/actuation (Flonase Allergy Relief) 2 sprays intranasal DAILY lisinopril-hydrochlorothiazide 20-12.5 mg 1 tab PO DAILY 90 days naproxen 500 mg PO BID PRN 14 days omeprazole 20 mg PO DAILY 15 days HPI HPI 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 He noticed with doing this activity he gradually developed shoulder pain. He is 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. He states he has not had issues with right shoulder in the past. He was seen at the work connection, he was given an order for PT x 8 weeks. He feels PT is helping to an extent, he continues to have limitations with strength, especially lifting anything above waist or outward. He had an MRi and was referred to our office for ortho eval. He has been on light duty at work no lifting over 10 lbs. [facility] Medical History (Updated 01/05/25 @ 13:42 by Kinjal Aleman PA-C) Gout Reactive airway disease Anxiety Essential (primary) hypertension Surgical History No pertinent past surgical history Family History Father CVD (cardiovascular disease) Carotid artery disease Mother CVD (cardiovascular disease) Carotid artery disease Brother In good health Son In good health Social History (Updated 01/05/25 @ 13:31 by JEVON Bhakta) Household Members: Spouse Household Members Other:: 2 Housing: House Do you presently have visiting nurse or other home services: No Alcohol intake: never Patient Tobacco Use Status: Former Tobacco user Tobacco use type: Cigarette Years Smoked: year ago e-Cigarette/Vaping Use: Never Used Second Hand Smoke Exposure: No service: No Current occupational status: employed 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, 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 He has mild discomfort with rotator cuff strength testing however he has no weakness. Positive Evangelista. Neurovascularly intact Results Reviewed Results Reviewed: MR shoulder RT wo con IMPRESSION: 1. Rim rent insertional tear of the anterosuperior infraspinatus tendon arising from the footplate attachment measuring approximately 5 x 7 mm. 2. In the lower posterior inferior infraspinatus tendon, there is a focal undersurface partial tear measuring approximately 7 x 7 mm. 3. The subscapularis tendon and supraspinatus tendon appear intact. 4. The glenoid labrum appears grossly intact. No definite tear seen. 5. Tendinopathy of the long head of the biceps tendon within the rotator interval. 6. Mild to moderate subacromial/subdeltoid bursitis. Assessment & Plan Assessment & Plan (1) Right shoulder tendonitis: Code(s): M77.8 - Other enthesopathies, not elsewhere classified Category: Medical Plan: MRI findings were discussed with the patient and given his clinical exam we will treat this non conservatively with continued physical therapy and a steroid injection. I did explain the steroid injection will help with his inflammation to progress him with physical therapy. He will continue to modify his activities and continue light duty restrictions no lifting pushing pulling or carrying greater than 10 lb. I would like to see him back in 6 weeks for re- evaluation and potentially clear him for for full duty, sooner if needed. Orders: Orders PT Evaluation and Treatment Today M77.8 - Other enthesopathies, not elsewhere classified Coding Level of Care Code New Pt Level 3 (57475) Complex EM visit Add On G2211 Diagnoses Right shoulder tendonitis M77.8
[2025-01-05 13:14] VITALS: BMI 29.5
--- OUTSIDE RECORDS SUMMARY | 2025-01-05 13:45 | XMS_ITS | Patient Health Record ---
Author Organization [facility] Address [address] [place] [phone] Care Team Providers Care Mis Director Name Role Phone Dereje Chen Primary Care Provider Unavailab Nicholas Sim Jr Unavailable [phone] Allergies Allergen (clinical drug ingredient) Drug/Non Drug Allergy documented on EMR Reaction Allergy Type Onset Date Status ibuprofen Ibuprofen Unknown Drug Allergy Active Reason For Referral No Information Medications Medication SIG (Take, Route, Frequency, Duration) Notes [...] a Week for 30 day(s) Activ e Immunizations Vaccine Route Administration Date Status Comme nts Influenza Unknown 04/20/2019 Administered Influenza Unknown 04/29/2023 Administered Social History Tobacco Use: Social History Observation Description Date Details (start date - stop date) Former Smoker NA - NA Tobacco Use/Smoking Question Answer Notes Patient is [...] Never (0 point) Points 1 Interpretation Negative Problems Problem Type SNOMED Code ICD Code Onset Dates Problem Status W/U Status Risk Notes Problem 704917236 Colon cancer screening (Z12.11) Active confirmed Problem 45051314 Epigastric pain (R10.13) Active confirmed Problem 15804766 Duodenitis (K29.80) Active confirmed Problem Iron deficiency anemia (D50.9) Active confirmed Problem 80410548 Iron deficiency anemia, unspecified iron deficiency anemia type (D50.9) Active confirmed Encounters Encounter Location Date Provider Diagnosis [facility] [address] [place] [address] 01/29/2024 Nicholas Vila Jr Plan Of Treatment Pending Test Test Name Order Date LIVER [...] Insured Coverage Start Date Coverage End Date [facility] [address] [place], [place] [id number] TOR ISNEIL Self - patient is the insured Medical (General) History Medical History History ICD Code hypertension Iron deficiency anemia Surgical History Surgery Date(Month/Year) Hospitalization History Reason Date(Month/Year) Dehydration, diarrhea and acute renal fa ilure 11/26
== END 2025-01-05 13:57 | disposition home or self-care (01) ==
LOC: HO.HOS 13:08
PROVIDERS: PCP Physician Assistant; Visit Provider Physician Assistant
DX: M77.8 Other enthesopathies, not elsewhere classified (principal)
CPT/HCPCS: 99203

== ENCOUNTER → 2025-01-05 13:07 | Outpatient (BNVA) | payer BC, OTHER, SELFPAY | PROVIDERS: PCP Physician Assistant; Visit Provider Physician Assistant | DX: I10 Essential (primary) hypertension (principal); R73.09 Other abnormal glucose; F41.9 Anxiety disorder, unspecified; R68.82 Decreased libido; F90.0 Attention-deficit hyperactivity disorder, predominantly inattentive type; Z13.31 Encounter for screening for depression; Z13.39 Encounter for screening examination for other mental health and behavioral disorders; M77.8 Other enthesopathies, not elsewhere classified | CPT/HCPCS: 96127; 99202 ==

== ENCOUNTER 2025-01-05 14:10 | Outpatient (AMB) | payer BC, SELFPAY ==
--- NOTE | 2025-01-05 14:20 | MHC.PC.OV ---
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: No Accompanied by: Self / Same As Patient Allergies ibuprofen Allergy (Unknown, Verified 01/05/25 14:27) Hives Medication List - Last Reconciled 01/05/25 by Dereje Chen PA-C albuterol sulfate 90 mcg/actuation 2 puffs PO Q6H albuterol sulfate 90 mcg/actuation 2 puffs inhalation Q6H PRN clonazepam 0.25 mg (1/2 x 0.5 mg) PO BEDTIME 30 days cyclobenzaprine 10 mg PO TID PRN ferrous sulfate 325 mg PO BID 30 days fluticasone propionate 50 mcg/actuation (Flonase Allergy Relief) 2 sprays intranasal DAILY lisinopril-hydrochlorothiazide 20-12.5 mg 1 tab PO DAILY 90 days naproxen 500 mg PO BID PRN 14 days omeprazole 20 mg PO DAILY 15 days Tobacco use date assessed: 04/20/24 Dental Screening Dental Screen Date: 04/20/24 HPI f/u HPI Details Patient is a 59-year-old male here today for follow-up visit. Patient has a past medical history significant for hypertension, anxiety, GERD. Concern--> patient reports wanting to get his testosterone checked as he has been having low libido lately. Right shoulder tendinitis: Recently underwent a cortisone injection in his right shoulder. .. Anxiety: The patient reports experiencing anxiety, which may be contributing to elevated blood pressure readings. The patient has been considering medication for anxiety but is currently managing it with lifestyle modifications. He has also been having chronic issues with his attention and focus which has been evident for many many years. He attributes this somewhat to his anxiety. Patient does use clonazepam on an as needed basis for high points of anxiety. We did discuss trying a daily medication like SSRI to help him with his overall anxiety though he declines at this time. Hypertension: Patient's blood pressure today in office acceptable. He reports he is consistent with taking his blood pressure medication. Impaired glucose metabolism: Most recent fasting blood sugar at 110. .. Patient is concerned about his family history of coronary artery disease. He reports his brother had heart surgery recently. Will check patient's lipid panel [facility] Medical History (Updated 01/05/25 @ 14:35 by Dereje Chen PA-C) Gout Reactive airway disease Anxiety Essential (primary) hypertension Surgical History No pertinent past surgical history Family History Father CVD (cardiovascular disease) Carotid artery disease Mother CVD (cardiovascular disease) Carotid artery disease Brother In good health Son In good health Social History Household Members: Spouse Household Members Other:: 2 Housing: House Do you presently have visiting nurse or other home services: No Alcohol intake: never Patient Tobacco Use Status: Former Tobacco user Tobacco use type: Cigarette Years Smoked: year ago e-Cigarette/Vaping Use: Never Used Second Hand Smoke Exposure: No service: No Current occupational status: employed 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 1. Little interest or pleasure in doing things: several days 2. Feeling down, depressed, or hopeless: several days 3. Trouble falling or staying asleep, or sleeping too much: several days 4. Feeling tired or having little energy: several days 5. Poor appetite or overeating: not at all 6. Feeling bad about yourself - or that you are a failure or have let yourself or your family down: not at all 7. Trouble concentrating on things, such as reading the newspaper or watching television: several days 8. Moving or speaking so slowly that other people could have noticed. Or the opposite - being so fidgety or restless that you have been moving around a lot more than usual: not at all 9. Thoughts that you would be better off or of hurting yourself in some way: not at all Total score: 5 Depression Screening Interpretation: Positive Depression Screening Follow-up: Existing condition Depression Screening Done: Yes 49854 - PHQ-9 Billing: Yes Source: Developed by Drs. Baltazar Suarez, Gi Huston, Russell Damico and colleagues, with an educational alex from [employer]. Thrive Questionnaire Date Thrive assessed: 01/05/25 I am a: Patient What is your living situation today?: I have a steady place to live Within the past 12 months, did the food you bought not last and you didn't have the money to get more?: Never true Within the past 12 months, did you worry whether your food would run out before you got money to buy more?: Never true Do you have trouble paying for medicines?: No Do you have trouble getting transportation to medical appointments?: No Do you have trouble paying your heating and electricity bill?: No Do you have trouble taking care of your child, family member or friend?: No Do you have trouble with day-to-day activities such as bathing, preparing meals, shopping, managing finances, etc.?: No Are you currently unemployed and looking for a job?: No Are you interested in more education?: I choose not to answer this question Please select the resources that you would like help with: None Currently or been in a relationship where the following occur: I choose not to answer THRIVE Score: 0 AUDIT C Alcohol Use Questionnaire (AUDIT-C) 1. How often do you have a drink containing alcohol?: Never Total Score: 0 CLARICE-7 AMB Questionnaire CLARICE-7 Date CLARICE - 7 assessed: 01/05/25 Feeling nervous, anxious, or on edge: 1 = Several days Not being able to stop or control worryin = Not at all Worrying too much about different things: 1 = Several days Trouble relaxin = Several days Being so restless that it is hard to sit still: 1 = Several days Becoming easily annoyed or irritable: 0 = Not at all Feeling afraid as if something awful might happen: 0 = Not at all Total CLARICE-7 score (0-4 normal; 5-9 mild; 10-14 moderate; 15-21 severe): 4 Source: Developed by Drs. Baltazar Suarez, Russlel Dubon and colleagues, with an educational alex from [employer]. CLARICE-7 Assessment Billing CLARICE-7 Assessment Tool: CLARICE-7 Assessment 41467 Review of Systems Const Denies headache(s) Eyes Denies loss of vision ENT Denies vertigo, Denies dizziness, Denies headache(s) and Denies sore throat Card Denies chest pain, Denies leg edema and Denies lightheadedness Resp Denies cough, Denies hemoptysis and Denies wheezing GI Denies abdominal pain, Denies melena, Denies constipation, Denies diarrhea and Denies vomiting Denies dysuria, Denies urinary frequency and Denies urinary urgency Musc Denies arthralgias, Denies joint swelling, Denies numbness and Denies tingling Neuro Denies Abnormal speech present, Denies behavioral changes, Denies vertigo, Denies dizziness, Denies headache(s), Denies loss of vision, Denies memory loss, Denies numbness and Denies tingling Psych Denies anxiety, Denies behavioral changes, Denies depression, Denies memory loss and Denies panic attacks Randy/Lymph Denies easy bleeding and Denies easy bruising Aller/Immun Denies wheezing Physical exam (Primary Care) Vital Signs: Last Vital Signs Pulse 68 01/05/25 14:21 BP 128/88 01/05/25 14:43 Pulse Ox 98 01/05/25 14:21 Oxygen Delivery Method Room Air 01/05/25 14:21 BMI result Body Mass Index 29.6 Tobacco/Smoking Status: Tobacco use Status Tobacco use date assessed 04/20/24 01/05/25 14:25 Patient Tobacco Use Status Former Tobacco user 01/05/25 14:25 Tobacco use type Cigarette 01/05/25 14:25 e-Cigarette/Vaping Use Never Used 01/05/25 14:25 PHQ-9: PHQ-9 Score PHQ-9: Total score 5 01/05/25 14:28 Depression Screening Interpretation: Positive Depression Screening Follow-up: Existing condition Thrive Assessment: Date of Thrive Assessment Date Thrive assessed 01/05/25 01/05/25 14:25 Currently or been in a relationship where the following occur: I choose not to answer Const General: healthy appearing, no acute distress, alert and awake Nutritional Appearance: well nourished Orientation/consciousness: oriented to person, oriented to place and oriented to time HENMT Ears: TM's normal bilaterally General nose exam: Normal nasal mucous membranes and turbinates present Eyes Conjunctivae: conjunctivae normal Sclerae: sclerae normal Pupils: Equal, round and reactive pupils present Neck Neck: Yes no lymphadenopathy and Yes no JVD Thyroid: Thyroid normal Carotids: no bruits Resp Effort & Inspection: normal respiratory effort and not tachypneic Auscultation: no crackles, no rales, no rhonchi and no wheezes Cardio Rate: regular rate Rhythm: regular rhythm Heart sounds: no murmurs and normal S1 and S2 GI Palpation (GI): Soft to palpation, nontender, no hepatomegaly and no splenomegaly Auscultation: normal bowel sounds Skin General skin exam: no rashes or lesions noted and dry skin Neuro General: oriented to person, oriented to place and oriented to time Cranial nerves: Yes Equal, round and reactive pupils present Speech: No Abnormal speech present Gait exam (Neuro): Normal gait present Motor exam (neuro): no tremor noted Extrem Right upper extremity: full ROM Left upper extremity: full ROM Right lower extremity: full ROM; no edema Left lower extremity: full ROM; no edema Psych Mental Status: mental status grossly normal Speech and movement: Normal speech and movement present Affect: normal affect Attitude: cooperative Thought process: Normal thought process present Coding Level of Care Code Est Pt Level 4 (37938) Diagnoses Essential (primary) hypertension I10 Impaired glucose metabolism R73.09 Anxiety F41.9 Low libido R68.82 Attention deficit hyperactivity disorder (ADHD), predominantly inattentive type F90.0 Attention deficit type: attention deficit hyperactivity disorder (ADHD) Attention deficit-hyperactivity disorder type: predominantly inattentive Additional Codes CLARICE-7 Assessment Billing - CLARICE-7 Assessment Tool: CLARICE-7 Assessment 78406 ([id number]) PHQ-9 - 79372 - PHQ-9 Billing: Yes ([id number]) Assessment & Plan Assessment & Plan (1) Essential (primary) hypertension: Code(s): I10 - Essential (primary) hypertension Category: Medical Plan: Patient's blood pressure acceptable today in office. Will continue him on his current dose of lisinopril/hydrochlorothiazide with goal blood pressure to be below 140/90 (2) Impaired glucose metabolism: Code(s): R73.09 - Other abnormal glucose Category: Medical Plan: Most recent fasting labs showing slightly elevated fasting blood sugar 110. He will work on lifestyle and dietary modifications to reduce his sugar. (3) Anxiety: Code(s): F41.9 - Anxiety disorder, unspecified Category: Medical Plan: Patient does suffer from anxiety to which he uses clonazepam on an as needed basis. He reports most of anxiety stemming from stress related to work. We did discuss perhaps starting SSRI therapy though he would like to hold off, also is holding off on mental health therapy at this time. Did discuss the habit-forming nature of benzodiazepines and patient does understand and will only use clonazepam on a emergency/as needed basis only. (4) Low libido: Code(s): R68.82 - Decreased libido Category: Medical Plan: Patient does report low libido, will test his testosterone (5) ADD (attention deficit disorder): Code(s): F98.8 - Other specified behavioral and emotional disorders with onset usually occurring in childhood and adolescence Category: Medical Qualifiers: Attention deficit type: attention deficit hyperactivity disorder (ADHD) Attention deficit-hyperactivity disorder type: predominantly inattentive Qualified Code(s): F90.0 - Attention-deficit hyperactivity disorder, predominantly inattentive type Plan: The patient is considering non-stimulant options for managing attention deficit disorder, given the potential impact of stimulant medications on blood pressure. Orders: Orders Testosterone, Free/Total 01/05/25 R68.82 - Decreased libido Medications: Refilled clonazepam administer 30 minutes before bedtime 0.25 mg (1/2 x 0.5 mg) PO BEDTIME 15 tabs 0RF anxiety 30 days F41.9 - Anxiety disorder, unspecified lisinopril-hydrochlorothiazide 20-12.5 mg 1 tab PO DAILY 90 tabs 1RF 90 days I10 - Essential (primary) hypertension
[2025-01-05 14:21] VITALS: BP 152/80; PULSE 68; O2SAT 98; BMI 29.6
[2025-01-05 14:43] VITALS: BP 128/88
== END 2025-01-05 14:46 | disposition home or self-care (01) ==
LOC: HO.HMCH 14:11
PROVIDERS: PCP Physician Assistant; Visit Provider Physician Assistant
DX: I10 Essential (primary) hypertension (principal); R73.09 Other abnormal glucose; F41.9 Anxiety disorder, unspecified; R68.82 Decreased libido; F90.0 Attention-deficit hyperactivity disorder, predominantly inattentive type

== ENCOUNTER 2025-01-22 10:54 | Outpatient (REF) | payer BC, SELFPAY ==
--- OUTSIDE RECORDS SUMMARY | 2025-01-22 10:57 | XMS_ITS | Patient Health Record ---
Author Organization [facility] Address [address] [place] [id number] Care Team Providers Care Java Security Architect Name Role Phone Dereje Chen Primary Care Provider Unavailab Nicholas Sim Jr Unavailable Allergies Allergen (clinical drug ingredient) Drug/Non Drug [...] Problem Status W/U Status Risk Notes Problem 533945615 Colon cancer screening (Z12.11) Active confirmed Problem 02048306 Epigastric pain (R10.13) Active confirmed Problem 90256877 Duodenitis (K29.80) Active confirmed Problem Iron deficiency anemia (24081585) Iron deficiency anemia (D50.9) Active confirmed Problem 74375676 Iron deficiency anemia, unspecified iron deficiency anemia type (D50.9) Active confirmed Encounters Encounter Location Date Provider Diagnosis [facility] [address] [place] [address] 01/29/2024 Nicholas Vila Jr Plan Of Treatment [...] Insured Coverage Start Date Coverage End Date [facility] [address] [place], [place] [id number] TOR ISNEIL Self - patient is the insured Medical (General) History Medical History History ICD Code hypertension Iron deficiency anemia Surgical History Surgery Date(Month/Year) Hospitalization History Reason Date(Month/Year) Dehydration, diarrhea and acute renal fa ilure 11/26
== END 2025-01-22 10:55 | disposition home or self-care (01) ==
LOC: HO.LAB 10:54
PROVIDERS: PCP Physician Assistant; Visit Provider Physician Assistant
DX: I10 Essential (primary) hypertension (principal); D50.9 Iron deficiency anemia, unspecified; D64.89 Other specified anemias; R73.09 Other abnormal glucose; Z82.49 Family history of ischemic heart disease and other diseases of the circulatory system; R68.82 Decreased libido
CPT/HCPCS: 36415

== ENCOUNTER 2025-01-28 11:27 | Outpatient (REF) | payer BC, SELFPAY ==
--- OUTSIDE RECORDS SUMMARY | 2025-01-28 11:30 | XMS_ITS | Patient Health Record ---
Author Organization [facility] Address [address] [place] [id number] Care Team Providers Care Institutional Commodity Analyst Name Role Phone Dereje Chen Primary Care [...] Problem Status W/U Status Risk Notes Problem 290131998 Colon cancer screening (Z12.11) Active confirmed Problem 07779979 Epigastric pain (R10.13) Active confirmed Problem 79677321 Duodenitis (K29.80) Active confirmed Problem Iron deficiency anemia (D50.9) Active confirmed Problem 52559698 Iron deficiency anemia, unspecified iron deficiency anemia type (D50.9) Active confirmed Encounters Encounter Location Date Provider Diagnosis [facility] [address] [place] [address] 01/29/2024 Nicholas Vila Jr Plan Of Treatment [...] Insured Coverage Start Date Coverage End Date [facility] [address] [place], [place] [id number] TOR ISNEIL Self - patient is the insured Medical (General) History Medical History History ICD Code hypertension Iron deficiency anemia Surgical History Surgery Date(Month/Year) Hospitalization History Reason Date(Month/Year) Dehydration, diarrhea and acute renal fa ilure 11/26
[2025-01-28 12:13] LABS: Hematocrit 38.6 % (42.0-52.0); Hemoglobin 12.8 g/dl (14.0-18.0); Mean Corpuscular HGB Conc 33.2 g/dl (31.0-36.0); Mean Corpuscular Hemoglobin 27.2 pg (27.0-33.0); Mean Corpuscular Volume 82.1 fL (80.0-98.0); NRBC Abs Auto 0.000 X10*3/uL (0.0-0.012); NRBC Pct Auto 0.0 /100WBC (0.0-0.2); Platelet Count 266 X10*3/uL (160-400); Red Blood Count 4.70 X10*6/uL (4.60-5.80); White Blood Count 8.2 X10*3/uL (4.8-10.8)
[2025-01-28 12:30] LABS: Hemoglobin A1C 140.6878 umol/L; Total Hemoglobin (HGBA1C) 3276.2065 umol/L
[2025-01-28 12:42] LABS: Alanine Aminotransferase 45 U/L (0-40); Albumin Level 4.6 g/dL (3.5-5.0); Alkaline Phosphatase 100 U/L (39-117); Anion Gap 12 (12-20); Aspartate Amino Transferase 33 U/L (5-37); Blood Urea Nitrogen 17 mg/dL (9-16); Calcium 8.2 mg/dL (8.4-10.2); Carbon Dioxide 24 mmol/L (22-29); Chloride 108 mmol/L (96-108); Cholesterol 158 mg/dL (<200); Estimated Glomerular Filt Rate > 60; HDL Cholesterol 29 mg/dL (>40); Iron 36 mcg/dL (45-160); Percent Iron Saturation 10 % (15-50); Potassium 4.2 mmol/L (3.3-5.1); Sodium 140 mmol/L (135-145); Total Iron Binding Capacity 366 mcg/dL (228-428); Total Protein 6.9 g/dL (6.5-8.0); Triglycerides 98 mg/dL (<150); Unsaturated Iron Binding 330 ug/dL
[2025-01-28 12:53] LABS: Microalbum/Creatinine Ratio Ur 6.6 ug/mg cr (<30)
[2025-02-03 10:49] LABS: Testosterone, Free 50.3 pg/mL (35.0-155.0)
== END 2025-01-28 11:28 | disposition home or self-care (01) ==
LOC: HO.LAB 11:27
PROVIDERS: PCP Physician Assistant; Visit Provider Physician Assistant
DX: I10 Essential (primary) hypertension (principal); R73.09 Other abnormal glucose; R68.82 Decreased libido; D50.9 Iron deficiency anemia, unspecified; D64.89 Other specified anemias; Z82.49 Family history of ischemic heart disease and other diseases of the circulatory system
CPT/HCPCS: 36415; 80053; 80061; 82043; 82570; 83036; 83540; 84402; 84403; 85027

== ENCOUNTER 2025-04-14 13:52 | Outpatient (AMB) | payer BC, SELFPAY ==
--- NOTE | 2025-04-14 14:04 | MHC.PC.OV ---
Vital Signs 04/14/25 14:05 Height 5 ft 6 in Weight 184 lb 2 oz BMI 29.7 BP 110/60 Blood Pressure Location Lt brachial Position Sitting Pulse 81 Pulse Source Pulse Oximeter Temp 97.5 F Temp Source Temporal Artery Scan Pulse Oximetry (%) 98 Oxygen Delivery Method Room Air Intake Visit Reasons: 3 months Intake Note: Patient is here to follow up on ADD, GERD, HTN. Food Or Baggage Handling [place] Required: No Biometrics Head: Not Required per policy Accompanied by: Self / Same As Patient Allergies ibuprofen Allergy (Unknown, Verified 04/14/25 14:13) Hives Medication List - Last Reconciled 04/14/25 by Dereje Chen PA-C albuterol sulfate 90 mcg/actuation 2 puffs inhalation Q6H PRN clonazepam 0.25 mg (1/2 x 0.5 mg) PO BEDTIME 30 days cyclobenzaprine 10 mg PO TID PRN ferrous sulfate 325 mg PO BID 30 days fluticasone propionate 50 mcg/actuation (Flonase Allergy Relief) 2 sprays intranasal DAILY lisinopril-hydrochlorothiazide 20-12.5 mg 1 tab PO DAILY 90 days naproxen 500 mg PO BID PRN 14 days omeprazole 20 mg PO DAILY 15 days Tobacco use date assessed: 04/14/25 Dental Screening Dental Screen Date: 04/14/25 Did you have a dental visit in the last 12 months?: Yes Did you have a dental problem in the last 6 months where you did not have access to dental care?: No Was dental information given to patient?: Patient has dentist HPI 3 months HPI Details Patient is a 59-year-old male here today for follow-up visit. Patient has a past medical history significant for hypertension, anxiety, GERD. .. Anxiety: The patient reports experiencing anxiety, which may be contributing to elevated blood pressure readings. The patient has been considering medication for anxiety but is currently managing it with lifestyle modifications. He has also been having chronic issues with his attention and focus which has been evident for many many years. He attributes this somewhat to his anxiety. Patient does use clonazepam on an as needed basis for high points of anxiety. We did discuss trying a daily medication like SSRI to help him with his overall anxiety though he declines at this time. .. Iron-deficiency anemia: Noted a low iron and low hemoglobin. He has not been regularly taking his iron supplement. He promises to start taking iron supplementation Hypertension: Patient's blood pressure today in office acceptable. He reports he is consistent with taking his blood pressure medication. Impaired glucose metabolism: Most recent fasting blood sugar at 110. A1c is 6.1. Laboratory Tests 01/28/25 01/28/25 11:44 11:52 Hemoglobin A1c % 6.1 H Calcium 8.2 L D Iron 36 L Total Testosterone 384 Urine Microalbumin 12.0 PFSH Medical History Gout Reactive airway disease Anxiety Essential (primary) hypertension Surgical History No pertinent past surgical history Family History Father CVD (cardiovascular disease) Carotid artery disease Mother CVD (cardiovascular disease) Carotid artery disease Brother In good health Son In good health Social History Household Members: Spouse Household Members Other:: 2 Housing: House Do you presently have visiting nurse or other home services: No Alcohol intake: never Patient Tobacco Use Status: Former Tobacco user Tobacco use type: Cigarette Years Smoked: year ago e-Cigarette/Vaping Use: Never Used Second Hand Smoke Exposure: Yes service: No Current occupational status: employed 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, 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 Cognitive needs: No Hearing needs: No Vision needs: Yes (glasses) Questionnaire Thrive Questionnaire Date Thrive assessed: 01/05/25 I am a: Patient What is your living situation today?: I have a steady place to live Within the past 12 months, did the food you bought not last and you didn't have the money to get more?: Never true Within the past 12 months, did you worry whether your food would run out before you got money to buy more?: Never true Do you have trouble paying for medicines?: No Do you have trouble getting transportation to medical appointments?: No Do you have trouble paying your heating and electricity bill?: No Do you have trouble taking care of your child, family member or friend?: No Do you have trouble with day-to-day activities such as bathing, preparing meals, shopping, managing finances, etc.?: No Are you currently unemployed and looking for a job?: No Are you interested in more education?: I choose not to answer this question Please select the resources that you would like help with: None Currently or been in a relationship where the following occur: I choose not to answer THRIVE Score: 0 CLARICE-7 AMB Questionnaire CLARICE-7 Date CLARICE - 7 assessed: 01/05/25 Source: Developed by Drs. Baltazar Suarez, Gi Huston, Russell Damico and colleagues, with an educational alex from [employer]. Review of Systems Const Denies headache(s) Eyes Denies loss of vision ENT Denies vertigo, Denies dizziness, Denies headache(s) and Denies sore throat Card Denies chest pain, Denies leg edema and Denies lightheadedness Resp Denies cough, Denies hemoptysis and Denies wheezing GI Denies abdominal pain, Denies melena, Denies constipation, Denies diarrhea and Denies vomiting Denies dysuria, Denies urinary frequency and Denies urinary urgency Musc Denies arthralgias, Denies joint swelling, Denies numbness and Denies tingling Neuro Denies Abnormal speech present, Denies behavioral changes, Denies vertigo, Denies dizziness, Denies headache(s), Denies loss of vision, Denies memory loss, Denies numbness and Denies tingling Psych Denies anxiety, Denies behavioral changes, Denies depression, Denies memory loss and Denies panic attacks Randy/Lymph Denies easy bleeding and Denies easy bruising Aller/Immun Denies wheezing Physical exam (Primary Care) Vital Signs: Last Vital Signs Temp 97.5 F 04/14/25 14:05 Pulse 81 04/14/25 14:05 BP 110/60 04/14/25 14:05 Pulse Ox 98 04/14/25 14:05 Oxygen Delivery Method Room Air 04/14/25 14:05 BMI result Body Mass Index 29.7 Tobacco/Smoking Status: Tobacco use Status Tobacco use date assessed 04/14/25 04/14/25 14:07 Patient Tobacco Use Status Former Tobacco user 04/14/25 14:07 Tobacco use type Cigarette 04/14/25 14:07 e-Cigarette/Vaping Use Never Used 04/14/25 14:07 Thrive Assessment: Date of Thrive Assessment Date Thrive assessed 01/05/25 04/14/25 14:07 Currently or been in a relationship where the following occur: I choose not to answer Const General: healthy appearing, no acute distress, alert and awake Nutritional Appearance: well nourished Orientation/consciousness: oriented to person, oriented to place and oriented to time HENMT Ears: TM's normal bilaterally General nose exam: Normal nasal mucous membranes and turbinates present Eyes Conjunctivae: conjunctivae normal Sclerae: sclerae normal Pupils: Equal, round and reactive pupils present Neck Neck: Yes no lymphadenopathy and Yes no JVD Thyroid: Thyroid normal Carotids: no bruits Resp Effort & Inspection: normal respiratory effort and not tachypneic Auscultation: no crackles, no rales, no rhonchi and no wheezes Cardio Rate: regular rate Rhythm: regular rhythm Heart sounds: no murmurs and normal S1 and S2 GI Palpation (GI): Soft to palpation, nontender, no hepatomegaly and no splenomegaly Auscultation: normal bowel sounds Skin General skin exam: no rashes or lesions noted and dry skin Neuro General: oriented to person, oriented to place and oriented to time Cranial nerves: Yes Equal, round and reactive pupils present Speech: No Abnormal speech present Gait exam (Neuro): Normal gait present Motor exam (neuro): no tremor noted Extrem Right upper extremity: full ROM Left upper extremity: full ROM Right lower extremity: full ROM; no edema Left lower extremity: full ROM; no edema Psych Mental Status: mental status grossly normal Speech and movement: Normal speech and movement present Affect: normal affect Attitude: cooperative Thought process: Normal thought process present Coding Level of Care Code Est Pt Level 4 (65017) Diagnoses Essential (primary) hypertension I10 Impaired glucose metabolism R73.09 Anxiety F41.9 Assessment & Plan Assessment & Plan (1) Essential (primary) hypertension: Code(s): I10 - Essential (primary) hypertension Category: Medical Plan: Patient's blood pressure acceptable today in office. Will continue him on his current dose of lisinopril/hydrochlorothiazide with goal blood pressure to be below 140/90 (2) Impaired glucose metabolism: Code(s): R73.09 - Other abnormal glucose Category: Medical Plan: Most recent fasting labs showing slightly elevated fasting blood sugar 110. A1c is 6.1. He will work on lifestyle and dietary modifications to reduce his sugar. (3) Anxiety: Code(s): F41.9 - Anxiety disorder, unspecified Category: Medical Plan: Patient's anxiety please stress and work-related. Does use clonazepam on an as needed basis with good effect. We did discuss the habit-forming nature of this medication and patient promises to only use clonazepam on an as needed basis. Orders: Orders Hemoglobin A1c Today R73.09 - Other abnormal glucose Complete Blood Count no Diff Today K21.9 - Gastro-esophageal reflux disease without esophagitis IRON PROFILE Today D50.9 - Iron deficiency anemia, unspecified, D64.89 - Other specified anemias Prostate Specific Antigen Scr Today I10 - Essential (primary) hypertension, Z12.5 - Encounter for screening for malignant neoplasm of prostate Lipid Panel Today Z82.49 - Family history of ischemic heart disease and other diseases of the circulatory system Vitamin B12 and Folate Today D64.89 - Other specified anemias, E53.8 - Deficiency of other specified B group vitamins Comprehensive [place]. Panel Fast Today I10 - Essential (primary) hypertension Medications: Refilled clonazepam administer 30 minutes before bedtime 0.25 mg (1/2 x 0.5 mg) PO BEDTIME 15 tabs 0RF anxiety 30 days F41.9 - Anxiety disorder, unspecified lisinopril-hydrochlorothiazide 20-12.5 mg 1 tab PO DAILY 90 tabs 1RF 90 days I10 - Essential (primary) hypertension ferrous sulfate 325 mg PO BID 60 tabs 3RF 30 days D50.9 - Iron deficiency anemia, unspecified, D64.89 - Other specified anemias
[2025-04-14 14:05] VITALS: BP 110/60; PULSE 81; TEMP 36.4; O2SAT 98; BMI 29.7
== END 2025-04-14 14:33 | disposition home or self-care (01) ==
LOC: HO.HMCH 13:53
PROVIDERS: PCP Physician Assistant; Visit Provider Physician Assistant
DX: I10 Essential (primary) hypertension (principal); R73.09 Other abnormal glucose; F41.9 Anxiety disorder, unspecified